=== PATIENT | male | born 1935 | race American Indian/Alaskan Native ===

== ENCOUNTER 2018-03-04 16:14 | Inpatient (IN) | payer MEDICARE ==
--- NOTE | 2018-03-04 16:36 | Emergency Department Report ---
<YOLI STEINER - Last Filed: 03/04/18 19:49> ED General Adult HPI - General Chief complaint: Altered Mental Status Stated complaint: AMS Time Seen by Provider: 03/04/18 16:31 Source: patient, EMS (verbal report received from EMS.ems notes not available at time of chart dictation), RN notes reviewed, old records reviewed Mode of arrival: Stretcher Limitations: Altered Mental Status - History of Present Illness Initial comments: This is an 82-year-old gentleman who is not known to this provider previously. He is unknown to this provider previously. His past medical history includes COPD, congestive heart failure, renal insufficiency, unknown if he is on home oxygen, and he does not know what his ejection fraction is. He is brought to the hospital by EMS for altered mental status. His last known well time is not known. EMS reports the patient was breathing adequately and Eddi-Max breathing in the field. They reported a normal fingerstick. Upon arrival to the ER, the patient was breathing spontaneously, and was arousable to vigorous verbal and physical stimulation. He denied all complaints. He had no recollection of any of the aforementioned events. He cannot describe exacerbating or relieving factors, or radiation of symptoms. He currently denies headache, neck pain, chest pain, abdominal pain, shortness of breath, urinary symptoms. No family or friends are available at this time for collateral information. -: unknown Severity scale (0 -10): 0 Quality: other Consistency: other Improves with: other Worsens with: other Associated Symptoms: confusion, weakness - Related Data Home Medications Medication Instructions Recorded Confirmed Last Taken Clopidogrel [Plavix] 75 mg PO QDAY 03/05/14 10/02/17 Unknown Carvedilol [Coreg] 25 mg PO BID 10/02/17 10/02/17 Unknown Diltiazem HCl [Diltiazem 24Hr ER] 180 mg PO QDAY 10/02/17 10/02/17 Unknown Ezetimibe/Simvastatin [Vytorin 1 each PO QDAY 10/02/17 10/02/17 Unknown 10-20 mg] Ibuprofen [Motrin 800 MG tab] 800 mg PO TID PRN 10/02/17 10/02/17 Unknown LORazepam [Ativan] 2 mg PO TID PRN 10/02/17 10/02/17 Unknown Nitroglycerin [Nitrostat] 0.4 mg SL Q5M PRN 10/02/17 10/02/17 Unknown Acetaminophen with Codeine 30 mg TID PRN 10/03/17 10/03/17 10/01/17 [Acetaminophen-Cod #2 Tablet] Gabapentin [Neurontin] 100 mg PO QHS 10/03/17 10/03/17 10/01/17 Previous Rx's Medication Instructions Recorded Last Taken Type ALBUTEROL Inhaler (OR & NICU) 2 puff IH QID PRN #1 inha 10/05/17 Unknown Rx [ProAir HFA Inhaler] ALBUTEROL NEB's [Proventil 0.083% 2.5 mg IH Q4HRT PRN #60 nebu 10/05/17 Unknown Rx NEBS] Carvedilol [Coreg] 6.25 mg PO BID tablet 10/05/17 Unknown Rx Furosemide [Lasix TAB] 40 mg PO QDAY #30 tablet 10/05/17 Unknown Rx Lisinopril [Zestril TAB] 40 mg PO QDAY #30 tablet 10/05/17 Unknown Rx Mirabegron [Myrbetriq] 25 mg PO QDAY #30 tab.er.24h 10/05/17 Unknown Rx Pantoprazole [Protonix TAB] 40 mg PO QAM #30 tablet 10/05/17 Unknown Rx Potassium Chloride [K-Dur] 10 meq PO QDAY #30 tablet 10/05/17 Unknown Rx Sertraline [Zoloft] 25 mg PO QDAY #30 tablet 10/05/17 Unknown Rx levoFLOXacin [Levaquin TAB] 750 mg PO Q48HR #4 tablet 10/05/17 Unknown Rx methOCARBAMOL [Robaxin TAB] 500 mg PO BID #60 tablet 10/05/17 Unknown Rx predniSONE [Deltasone] 10 mg PO QDAY #30 tab 10/05/17 Unknown Rx raNITIdine HCl [Zantac 300 MG TAB] 300 mg PO QPM #30 tablet 10/05/17 Unknown Rx Allergies Allergy/AdvReac Type Severity Reaction Status Date / Time No Known Allergies Allergy Verified 03/04/18 16:23 ED Review of Systems ROS: Stated complaint: AMS Other details as noted in HPI Comment: Unobtainable due to pts medical conditions ED Past Medical Hx - Past Medical History Hx Hypertension: Yes Hx Heart Attack/AMI: Yes Hx COPD: Yes Additional medical history: syncope, high cholesterol - Surgical History Hx Pacemaker: Yes Hx Internal Defibrillator: Yes Additional Surgical History: aicd - Social History Smoking Status: Former Smoker - Medications Home Medications: Home Medications Medication Instructions Recorded Confirmed Last Taken Type Clopidogrel [Plavix] 75 mg PO QDAY 03/05/14 10/02/17 Unknown History Carvedilol [Coreg] 25 mg PO BID 10/02/17 10/02/17 Unknown History Diltiazem HCl [Diltiazem 24Hr ER] 180 mg PO QDAY 10/02/17 10/02/17 Unknown History Ezetimibe/Simvastatin [Vytorin 1 each PO QDAY 10/02/17 10/02/17 Unknown History 10-20 mg] Ibuprofen [Motrin 800 MG tab] 800 mg PO TID PRN 10/02/17 10/02/17 Unknown History LORazepam [Ativan] 2 mg PO TID PRN 10/02/17 10/02/17 Unknown History Nitroglycerin [Nitrostat] 0.4 mg SL Q5M PRN 10/02/17 10/02/17 Unknown History Acetaminophen with Codeine 30 mg TID PRN 10/03/17 10/03/17 10/01/17 History [Acetaminophen-Cod #2 Tablet] Gabapentin [Neurontin] 100 mg PO QHS 10/03/17 10/03/17 10/01/17 History ALBUTEROL Inhaler (OR & NICU) 2 puff IH QID PRN #1 inha 10/05/17 Unknown Rx [ProAir HFA Inhaler] ALBUTEROL NEB's [Proventil 0.083% 2.5 mg IH Q4HRT PRN #60 nebu 10/05/17 Unknown Rx NEBS] Carvedilol [Coreg] 6.25 mg PO BID tablet 10/05/17 Unknown Rx Furosemide [Lasix TAB] 40 mg PO QDAY #30 tablet 10/05/17 Unknown Rx Lisinopril [Zestril TAB] 40 mg PO QDAY #30 tablet 10/05/17 Unknown Rx Mirabegron [Myrbetriq] 25 mg PO QDAY #30 tab.er.24h 10/05/17 Unknown Rx Pantoprazole [Protonix TAB] 40 mg PO QAM #30 tablet 10/05/17 Unknown Rx Potassium Chloride [K-Dur] 10 meq PO QDAY #30 tablet 10/05/17 Unknown Rx Sertraline [Zoloft] 25 mg PO QDAY #30 tablet 10/05/17 Unknown Rx levoFLOXacin [Levaquin TAB] 750 mg PO Q48HR #4 tablet 10/05/17 Unknown Rx methOCARBAMOL [Robaxin TAB] 500 mg PO BID #60 tablet 10/05/17 Unknown Rx predniSONE [Deltasone] 10 mg PO QDAY #30 tab 10/05/17 Unknown Rx raNITIdine HCl [Zantac 300 MG TAB] 300 mg PO QPM #30 tablet 10/05/17 Unknown Rx ED Physical Exam - General Limitations: Altered Mental Status, Physical Limitation General appearance: lethargic - Head Head exam: Present: atraumatic, normocephalic - Eye Eye exam: Present: normal appearance - ENT ENT exam: Present: normal orophraynx, mucous membranes dry, normal external ear exam - Neck Neck exam: Present: normal inspection, full ROM. Absent: tenderness, meningismus - Respiratory Respiratory exam: Present: decreased breath sounds. Absent: respiratory distress, wheezes, rales, rhonchi, stridor - Cardiovascular Cardiovascular Exam: Present: tachycardia, normal heart sounds, systolic murmur - GI/Abdominal GI/Abdominal exam: Present: soft, pulsatile mass. Absent: distended, tenderness , guarding, rebound, rigid - Rectal Rectal exam: Absent: normal inspection (there is a stage II sacral ulcer) - exam: Present: normal inspection, other (patient has bilateral penile prosthesis prosthesis) - Extremities Exam Extremities exam: Present: full ROM, pedal edema, other (2+ pulses noted in the bilateral upper, lower extremities. Compartments soft. No long bony tenderness. The pelvis is stable.). Absent: normal inspection (chronic venous stasis and hyperpigmentation noted in the bilateral lower extremities), calf tenderness - Back Exam Back exam: Present: normal inspection, full ROM. Absent: paraspinal tenderness , vertebral tenderness - Neurological Exam Neurological exam: Present: altered (patient alert to name. He follows commands.), other (there is no facial droop. The tongue is midline. Extraocular movements are intact bilaterally. Sensation is intact to light touch in the upper, lower extremities to light touch. 5 out of 5 strength bilateral upper, lower extremity) - Psychiatric Psychiatric exam: Present: flat affect - Skin Skin exam: Present: warm, rash (sacral ulcer noted) ED Course Vital Signs 03/04/18 03/04/18 16:33 20:32 Temperature 98 F Pulse Rate 112 H 109 H Respiratory 18 22 Rate Blood Pressure 121/84 133/94 [Right] O2 Sat by Pulse 95 Oximetry - Reevaluation(s) Reevaluation #1: 03/04/18 18:43 Elevated troponin is appreciated, likely secondary to underlying renal insufficiency. Reevaluation #2: 03/04/18 19:23 Patient continues to remain awake and alert and in no distress. His urinalysis suggests a urinary tract infection. Ceftriaxone is ordered. There is currently a computer error, and I am unable to order a urine culture. I have contacted the microbiology lab and verbally requested a urine culture. Reevaluation #3: 03/04/18 19:49 Care is transferred to the oncoming physician, Dr. Nayely Oliver, to contact the hospitalist for admission. ED Medical Decision Making - Lab Data Result diagrams: 03/04/18 16:41 03/04/18 16:41 Vital Signs 03/04/18 16:33 Temperature 98 F Pulse Rate 112 H Respiratory 18 Rate Blood Pressure 121/84 [Right] O2 Sat by Pulse 95 Oximetry Lab Results 03/04/18 03/04/18 03/04/18 Range/Units 16:41 16:41 16:41 WBC 6.5 (4.5-11.0) K/mm3 RBC 4.67 (3.65-5.03) M/mm3 Hgb 11.5 L (11.8-15.2) gm/dl Hct 36.8 (35.5-45.6) % MCV 79 L (84-94) fl MCH 25 L (28-32) pg MCHC 31 L (32-34) % RDW 22.4 H (13.2-15.2) % Plt Count 166 (140-440) K/mm3 PT (12.2-14.9) Sec. INR (0.87-1.13) POC ABG pH (7.35-7.45) POC ABG pCO2 (35-45) POC ABG pO2 (80-105) POC ABG HCO3 POC ABG Total CO2 POC ABG O2 Sat POC ABG Base Excess FiO2 % Sodium 147 H (137-145) mmol/L Potassium 5.2 H (3.6-5.0) mmol/L Chloride 108.8 H (98-107) mmol/L Carbon Dioxide 15 L (22-30) mmol/L Anion Gap 28 mmol/L BUN 136 H (9-20) mg/dL Creatinine 4.9 H (0.8-1.5) mg/dL Estimated GFR 14 ml/min BUN/Creatinine Ratio 28 % Glucose 91 (75-100) mg/dL Lactic Acid (0.7-2.0) mmol/L Calcium 9.0 (8.4-10.2) mg/dL Magnesium (1.7-2.3) mg/dL Total Bilirubin 2.20 H (0.1-1.2) mg/dL AST 32 (5-40) units/L ALT 39 (7-56) units/L Alkaline Phosphatase 259 H (35-129) units/L Total Creatine Kinase (55-170) units/L Troponin T (0.00-0.029) ng/mL Total Protein 6.2 L (6.3-8.2) g/dL Albumin 3.7 L (3.9-5) g/dL Albumin/Globulin Ratio 1.5 % Triglycerides (2-149) mg/dL Cholesterol (50-199) mg/dL LDL Cholesterol Direct (50-130) mg/dL HDL Cholesterol (40-59) mg/dL Cholesterol/HDL Ratio % TSH 0.433 (0.270-4.200) mlU/mL Plasma/Serum Alcohol (0-0.07) % 03/04/18 03/04/18 03/04/18 Range/Units 16:41 16:41 16:41 WBC (4.5-11.0) K/mm3 RBC (3.65-5.03) M/mm3 Hgb (11.8-15.2) gm/dl Hct (35.5-45.6) % MCV (84-94) fl MCH (28-32) pg MCHC (32-34) % RDW (13.2-15.2) % Plt Count (140-440) K/mm3 PT 17.3 H (12.2-14.9) Sec. INR 1.34 H (0.87-1.13) POC ABG pH (7.35-7.45) POC ABG pCO2 (35-45) POC ABG pO2 (80-105) POC ABG HCO3 POC ABG Total CO2 POC ABG O2 Sat POC ABG Base Excess FiO2 % Sodium (137-145) mmol/L Potassium (3.6-5.0) mmol/L Chloride (98-107) mmol/L Carbon Dioxide (22-30) mmol/L Anion Gap mmol/L BUN (9-20) mg/dL Creatinine (0.8-1.5) mg/dL Estimated GFR ml/min BUN/Creatinine Ratio % Glucose (75-100) mg/dL Lactic Acid 2.10 H* (0.7-2.0) mmol/L Calcium (8.4-10.2) mg/dL Magnesium (1.7-2.3) mg/dL Total Bilirubin (0.1-1.2) mg/dL AST (5-40) units/L ALT (7-56) units/L Alkaline Phosphatase (35-129) units/L Total Creatine Kinase (55-170) units/L Troponin T (0.00-0.029) ng/mL Total Protein (6.3-8.2) g/dL Albumin (3.9-5) g/dL Albumin/Globulin Ratio % Triglycerides (2-149) mg/dL Cholesterol (50-199) mg/dL LDL Cholesterol Direct (50-130) mg/dL HDL Cholesterol (40-59) mg/dL Cholesterol/HDL Ratio % TSH (0.270-4.200) mlU/mL Plasma/Serum Alcohol < 0.01 (0-0.07) % 03/04/18 03/04/18 03/04/18 Range/Units 16:41 16:41 17:03 WBC (4.5-11.0) K/mm3 RBC (3.65-5.03) M/mm3 Hgb (11.8-15.2) gm/dl Hct (35.5-45.6) % MCV (84-94) fl MCH (28-32) pg MCHC (32-34) % RDW (13.2-15.2) % Plt Count (140-440) K/mm3 PT (12.2-14.9) Sec. INR (0.87-1.13) POC ABG pH 7.416 (7.35-7.45) POC ABG pCO2 25.0 L (35-45) POC ABG pO2 87 (80-105) POC ABG HCO3 16.1 POC ABG Total CO2 17 POC ABG O2 Sat 97 POC ABG Base Excess -8 FiO2 21 % Sodium (137-145) mmol/L Potassium (3.6-5.0) mmol/L Chloride (98-107) mmol/L Carbon Dioxide (22-30) mmol/L Anion Gap mmol/L BUN (9-20) mg/dL Creatinine (0.8-1.5) mg/dL Estimated GFR ml/min BUN/Creatinine Ratio % Glucose (75-100) mg/dL Lactic Acid (0.7-2.0) mmol/L Calcium (8.4-10.2) mg/dL Magnesium 3.20 H (1.7-2.3) mg/dL Total Bilirubin (0.1-1.2) mg/dL AST (5-40) units/L ALT (7-56) units/L Alkaline Phosphatase (35-129) units/L Total Creatine Kinase 38 L (55-170) units/L Troponin T 0.065 H (0.00-0.029) ng/mL Total Protein (6.3-8.2) g/dL Albumin (3.9-5) g/dL Albumin/Globulin Ratio % Triglycerides 106 (2-149) mg/dL Cholesterol 117 (50-199) mg/dL LDL Cholesterol Direct 60 (50-130) mg/dL HDL Cholesterol 20 L (40-59) mg/dL Cholesterol/HDL Ratio 5.85 % TSH (0.270-4.200) mlU/mL Plasma/Serum Alcohol (0-0.07) % - EKG Data -: EKG Interpreted by [place] Rate: tachycardia - EKG Data 03/04/18 18:41 Sinus tachycardia, 112 bpm, normal axis, QTC prolonged, poor R-wave progression , T-wave inversions in the lateral leads, abnormal EKG, not having chest pain, not a STEMI, nonspecific changes were compared to prior EKG from September 2017. - Radiology Data Radiology results: report reviewed, image reviewed Noncontrast CT scan of the brain is negative. Noncontrast CT scan of the abdomen and pelvis shows pleural effusions, no other obvious disease that is acute, numerous chronic findings. X-ray of the chest shows cardiomegaly, rotated, atelectasis versus effusion - Medical Decision Making Differential diagnosis, including but not limited to: Intracranial hemorrhage, pneumonia, encephalopathy, urinary tract infection Assessment and plan: 82-year-old male with altered mental status. He has a nonfocal neurologic examination, he is protecting his airway at this time, and awake and responsive to questioning and interaction with myself and nurses. He is not a TPA candidate as his last known well time is not known. He is found to have elevated blood urea nitrogen with a creatinine of 4.9, which is almost double what compared to prior values. Most likely, the patient has acute on chronic renal failure, with probable concomitant uremic encephalopathy. Patient is producing urine, and is not obstructed. Myself and nursing staff attempted to place a coud catheter using typical aseptic technique, and we were not successful. However, the patient is not obstructed and is producing urine. He therefore does not require placement of a catheter at this time. He will be given a trial bolus of IV fluids and he will be maintained supportively. The Hospital physician is paged to arrange admission. Critical care attestation.: If time is entered above; I have spent that time in minutes in the direct care of this critically ill patient, excluding procedure time. ED Disposition Disposition: OP ADMIT IP TO THIS HOSP Is pt being admited?: Yes Does the pt Need Aspirin: Yes Condition: Stable Referrals: PRIMARY CARE, [Primary Care Provider] - 3-5 Days - Assessment Assessment Interval: Baseline - Level of Consciousness 1a. Level of Consciousness: not alert, arousable - LOC Questions 1b. LOC Questions: answers 1 question correctly - LOC Command 1c. LOC Commands: performs tasks correctly - Best Gaze 2. Best Gaze: normal - Visual 3. Visual: no visual loss - Facial Palsy 4. Facial Palsy: normal symmetrical movement - Motor Arm 5b. Motor Arm Right: no drift 5a. Motor Arm Left: no drift - Motor Leg 6a. Motor Leg Left: no drift 6b. Motor Leg Right: no drift - Limb Ataxia 7. Limb Ataxia: absent - Sensory 8. Sensory: normal - Best Language 9. Best Language: no aphasia - Dysarthria 10. Dysarthria: normal - Extinction and Inattention 11. Extinction/Inattention: no abnormality - Scoring Total Score: 2 Stroke Severity: Minor Stroke <GABRIELLE OLIVER III - Last Filed: 03/04/18 21:17> ED Course - Consultations Consultation #1: Hospitalist consulted for admission. Dr. Preciado to admit and assume care of patient. Full report given to Dr. Preciado 03/04/18 21:17 ED Medical Decision Making - Lab Data Result diagrams: 03/04/18 16:41 03/04/18 16:41
[2018-03-04 17:18] LABS: Hematocrit 36.8 % (35.5-45.6); Hemoglobin 11.5 gm/dl (11.8-15.2); Mean Corpuscular HGB Conc 31 % (32-34); Mean Corpuscular Hemoglobin 25 pg (28-32); Mean Corpuscular Volume 79 fl (84-94); Platelet Count 166 K/mm3 (140-440); Red Blood Count 4.67 M/mm3 (3.65-5.03); Red Cell Distribution Width 22.4 % (13.2-15.2)
[2018-03-04 17:22] LABS: INR 1.34 (0.87-1.13)
--- NOTE | 2018-03-04 17:40 | Cat Scan Report ---
FINAL REPORT EXAM: CT HEAD/BRAIN WO CON HISTORY: ams The the TECHNIQUE: CT examination of the head without IV contrast PRIORS: None. FINDINGS: No acute air-fluid level visualized in the included air-filled sinuses. Bone windows demonstrate no acute fracture. There is ventricular and sulcal prominence compatible with global cerebrocortical atrophy. Low attenuation regions in the cerebral white matter, while nonspecific, are present and usually attributed to chronic ischemic gliosis. It can occur secondary to the normal aging process, hypertension, or arterial sclerotic vascular disease. The differential includes demyelination in the appropriate clinical setting. The brain contains no mass, mass effect, hemorrhage, or acute infarct. There is no extra-axial intracranial bleed or brain bleed. There is no midline shift. IMPRESSION: No acute CVA, intracranial bleed, or brain mass
--- NOTE | 2018-03-04 17:58 | Cat Scan Report ---
FINAL REPORT EXAM: CT ABDOMEN PELVIS WO CON HISTORY: abd wall ecchymosis, altered mental status TECHNIQUE: CT examination of the ABDOMEN without IV contrast CT examination of the PELVIS without IV contrast PRIORS: One-view chest 03/04/2018 FINDINGS: Rotatory lumbar curvature with upper right apex. Degenerative change in the regional skeleton. Penile implant in place. Moderate right and small left pleural effusions layer posteriorly. Adjacent minimal compressive atelectasis in both lower lobes. Patient arm in the diagnostic [id number] severely degrades image quality and severely limits the examination. Motion and misregistration artifact also limits the examination. Cardiomegaly without pericardial effusion. Normal noncontrast appearance of the visualized portion of the liver, gallbladder, adrenals, pancreas, and spleen. Normal caliber abdominal aorta with moderate to severe calcified atherosclerotic plaque extending into the iliac arteries. Normal caliber IVC. Nonspecific, smoothly marginated, simple appearing, low density bilateral renal lesions are statistically most likely cysts. They are too numerous to count and peripelvic as well as cortical in location. No renal calculus or hydronephrosis. No ureteral calculus or distention. Very small fat containing umbilical hernia. No inguinal hernia. No CT evidence of abdominal wall hematoma. No retroperitoneal adenopathy. No mesenteric mass. Normal-appearing stomach and duodenum. No small bowel distention in the abdomen and pelvis. No pelvic free fluid. Normal-appearing decompressed urinary bladder. Normal-appearing prostate and seminal vesicles. No definite rectal abnormality. Moderate descending and severe sigmoid colon diverticulosis without CT evidence of diverticulitis. No gross ascites, free air, or colonic distention. Normal-appearing cecum and terminal ileum. Likely retrocecal appendix appears normal. 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 No CT evidence of abdominal wall hematoma or abnormal fluid collection Moderate descending and severe sigmoid colon diverticulosis without CT evidence of diverticulitis
--- NOTE | 2018-03-04 18:01 | XRay Report ---
FINAL REPORT EXAM: XR CHEST 1V AP HISTORY: RESP DISRESS TECHNIQUE: One view examination of the chest PRIORS: Portable chest 10/02/[address] 03/04/2018 FINDINGS: An electronic cardiac device remains in place and again obscures a portion of the left chest, limiting the examination. Cable entry is via the left subclavian vein. Cardiac silhouette size enlarged without definite vascular congestion. No radiographic evidence of pneumothorax or focal pulmonary consolidation. Bilateral pleural effusions noted on comparison CT not visible radiographically. No acute displaced fracture. IMPRESSION: Cardiomegaly without definite vascular congestion Moderate right and small left pleural effusions noted on comparison CT not visible radiographically
[2018-03-04 18:13] LABS: Albumin 3.7 g/dL (3.9-5)
[2018-03-04 18:15] LABS: Chol/HDL Ratio 5.85 %
[2018-03-04] MEDS ORDERED: NACL 0.9% 500 ML 500 ML IV ONE (18:24)
[2018-03-04] MEDS ORDERED: BABY ASPIRIN PO ONE (18:44)
[2018-03-04 19:00] LABS: Bacteria,Urine 1+ /HPF (Negative); Bilirubin,Urine NEG (Negative); Blood,Urine LG (Negative); Color,Urine Amber (Yellow); Mucus,Urine FEW /HPF
[2018-03-04 19:02] LABS: Amphetamine Screen,Urine PRESUMPTIVE NEGATIVE; Benzodiazepines Screen,Urine PRESUMPTIVE NEGATIVE; Cannabinoid Screen,Urine PRESUMPTIVE NEGATIVE; Cocaine Screen,Urine PRESUMPTIVE NEGATIVE; Methadone Screen,Urine PRESUMPTIVE NEGATIVE; Opiate Screen,Urine PRESUMPTIVE NEGATIVE
[2018-03-04 19:04] LABS: RBC,Urine > 182.0 /HPF (0.0-6.0); WBC,Urine > 182.0 /HPF (0.0-6.0)
[2018-03-04] MEDS ORDERED: ROCEPHIN/NS 1 GM/50 ML 1 GM/50 ML BAG IV ONE (19:20)
[2018-03-04 19:25] LABS: Basophils % (Manual) 0 % (0.0-1.8); Eosinophils % (Manual) 0 % (0.0-4.3); Large Platelets 1+; Total Cells Counted 100
[2018-03-04 19:26] LABS: Anisocytosis 1+; Hypochromasia 1+; Ovalocytes 1+; Platelet Estimate Consistent w Auto; Target Cells Few
[2018-03-04] MEDS ORDERED: KIONEX PR NR (22:44)
--- NOTE | 2018-03-04 22:47 | History and Physical Report ---
History of Present Illness Date of examination: 03/04/18 History of present illness: 82 year old man with history of hypertension, coronary artery disease, hyperlipidemia, CHF was brought to the emergency room is at decreased oral intake over the last 1 week. Son at bedside state that his in November and since then he is admitted difficulty with grieving process. Review of system is unobtainable. Patient was in the hospital 1 week ago for CHF exacerbation PAST MEDICAL HISTORY:hypertension, coronary artery disease, hyperlipidemia, CHF PAST SURGICAL HISTORY: Pacemaker, AICD SOCIAL HISTORY: No alcohol, no drugs, tobacco FAMILY HISTORY: Hypertension Medications and Allergies Allergies Allergy/AdvReac Type Severity Reaction Status Date / Time No Known Allergies Allergy Verified 03/04/18 16:23 Home Medications Medication Instructions Recorded Confirmed Last Taken Type Clopidogrel [Plavix] 75 mg PO DAILY 03/05/14 03/04/18 Unknown History LORazepam [Ativan] 2 mg PO DAILY PRN 10/02/17 03/04/18 Unknown History Nitroglycerin [Nitrostat] 0.4 mg SL Q5M PRN 10/02/17 03/04/18 Unknown History Gabapentin [Neurontin] 100 mg PO QHS 10/03/17 03/04/18 10/01/17 History Aspirin EC [Aspirin Enteric Coated 81 mg PO DAILY 03/04/18 03/04/18 Unknown History TAB] Carvedilol [Coreg] 6.25 mg PO BID 03/04/18 03/04/18 Unknown History Furosemide [Lasix] 80 mg PO BID 03/04/18 03/04/18 Unknown History Galantamine HBr [Galantamine ER] 8 mg PO DAILY 03/04/18 03/04/18 Unknown History Hydralazine HCl 25 mg PO TID 03/04/18 03/04/18 Unknown History ISOSORBIDE MONOnitrate [Imdur ER] 30 mg PO DAILY 03/04/18 03/04/18 Unknown History Ipratropium/Albuterol Sulfate 1 ampul INHALATION Q12H PRN 03/04/18 03/04/18 Unknown History [DUONEB *Not for PRN Use*] Mirabegron [Myrbetriq] 25 mg PO DAILY 03/04/18 03/04/18 Unknown History Potassium Chloride [K-Dur] 30 meq PO DAILY 03/04/18 03/04/18 Unknown History Sertraline [Zoloft] 25 mg PO DAILY 03/04/18 03/04/18 Unknown History guaiFENesin [Guaifenesin] 400 mg PO Q4H PRN 03/04/18 03/04/18 Unknown History Active Meds: Active Medications Sodium Polystyrene Sulfonate (Kionex) 15 gm WI ONCE ONE Stop: 03/04/18 22:45 Exam - Physical Exam Narrative exam: Gen. appearance: Patient lying in bed, no apparent distress HEENT: Normocephalic, atraumatic, pupils equally round and reactive to light, extraocular movement intact, and no sclericterus,. No JVD or thyromegaly or nodule,neck supple, no carotid bruit ,mucous membranes dry, no exudate or erythema Heart: S1, S2, regular rate and rhythm Lungs: Clear bilaterally, breathing comfortable Abdomen: Positive bowel sounds, non-tender, nondistended, no organomegaly Extremity:no edema cyanosis, clubbing Skin: no rash, dry, warm Neuro: Difficult to assess - Constitutional Vitals: Temp Pulse Resp BP Pulse Ox 98 F 111 H 24 143/104 95 03/04/18 16:33 03/04/18 21:45 03/04/18 21:45 03/04/18 21:45 03/04/18 16:33 Results - Labs CBC & Chem 7: 03/07/18 04:34 03/09/18 07:46 Labs: Abnormal lab results 03/04/18 03/04/18 03/04/18 Range/Units 16:41 16:41 16:41 Hgb 11.5 L (11.8-15.2) gm/dl MCV 79 L (84-94) fl MCH 25 L (28-32) pg MCHC 31 L (32-34) % RDW 22.4 H (13.2-15.2) % Seg Neuts % (Manual) 78.0 H (40.0-70.0) % Lymphocytes % (Manual) 10.0 L (13.4-35.0) % Monocytes % (Manual) 11.0 H (0.0-7.3) % Lymphocytes # (Manual) 0.7 L (1.2-5.4) K/mm3 PT 17.3 H (12.2-14.9) Sec. INR 1.34 H (0.87-1.13) POC ABG pCO2 (35-45) Sodium 147 H (137-145) mmol/L Potassium 5.2 H (3.6-5.0) mmol/L Chloride 108.8 H (98-107) mmol/L Carbon Dioxide 15 L (22-30) mmol/L BUN 136 H (9-20) mg/dL Creatinine 4.9 H (0.8-1.5) mg/dL Lactic Acid (0.7-2.0) mmol/L Magnesium (1.7-2.3) mg/dL Total Bilirubin 2.20 H (0.1-1.2) mg/dL Alkaline Phosphatase 259 H (35-129) units/L Total Creatine Kinase (55-170) units/L Troponin T (0.00-0.029) ng/mL Total Protein 6.2 L (6.3-8.2) g/dL Albumin 3.7 L (3.9-5) g/dL HDL Cholesterol (40-59) mg/dL Urine WBC (Auto) (0.0-6.0) /HPF 03/04/18 03/04/18 03/04/18 Range/Units 16:41 16:41 16:41 Hgb (11.8-15.2) gm/dl MCV (84-94) fl MCH (28-32) pg MCHC (32-34) % RDW (13.2-15.2) % Seg Neuts % (Manual) (40.0-70.0) % Lymphocytes % (Manual) (13.4-35.0) % Monocytes % (Manual) (0.0-7.3) % Lymphocytes # (Manual) (1.2-5.4) K/mm3 PT (12.2-14.9) Sec. INR (0.87-1.13) POC ABG pCO2 (35-45) Sodium (137-145) mmol/L Potassium (3.6-5.0) mmol/L Chloride (98-107) mmol/L Carbon Dioxide (22-30) mmol/L BUN (9-20) mg/dL Creatinine (0.8-1.5) mg/dL Lactic Acid 2.10 H* (0.7-2.0) mmol/L Magnesium 3.20 H (1.7-2.3) mg/dL Total Bilirubin (0.1-1.2) mg/dL Alkaline Phosphatase (35-129) units/L Total Creatine Kinase 38 L (55-170) units/L Troponin T 0.065 H (0.00-0.029) ng/mL Total Protein (6.3-8.2) g/dL Albumin (3.9-5) g/dL HDL Cholesterol 20 L (40-59) mg/dL Urine WBC (Auto) (0.0-6.0) /HPF 03/04/18 03/04/18 Range/Units 17:03 18:38 Hgb (11.8-15.2) gm/dl MCV (84-94) fl MCH (28-32) pg MCHC (32-34) % RDW (13.2-15.2) % Seg Neuts % (Manual) (40.0-70.0) % Lymphocytes % (Manual) (13.4-35.0) % Monocytes % (Manual) (0.0-7.3) % Lymphocytes # (Manual) (1.2-5.4) K/mm3 PT (12.2-14.9) Sec. INR (0.87-1.13) POC ABG pCO2 25.0 L (35-45) Sodium (137-145) mmol/L Potassium (3.6-5.0) mmol/L Chloride (98-107) mmol/L Carbon Dioxide (22-30) mmol/L BUN (9-20) mg/dL Creatinine (0.8-1.5) mg/dL Lactic Acid (0.7-2.0) mmol/L Magnesium (1.7-2.3) mg/dL Total Bilirubin (0.1-1.2) mg/dL Alkaline Phosphatase (35-129) units/L Total Creatine Kinase (55-170) units/L Troponin T (0.00-0.029) ng/mL Total Protein (6.3-8.2) g/dL Albumin (3.9-5) g/dL HDL Cholesterol (40-59) mg/dL Urine WBC (Auto) > 182.0 H (0.0-6.0) /HPF - Imaging and Cardiology CT scan - abdomen: report reviewed CT scan - pelvis: report reviewed Assessment and Plan Assessment Acute renal failure Urinary tract infection Hyperkalemia Hypernatremia Abnormal cardiac enzymes CHF, stable Coronary artery disease Hyperlipidemia Plan Admit to medicine Start gentle IV fluids, consult renal Give Kayexalate now, start IV Rocephin, follow cultures Check cardiac enzymes, echo Case discussed with renal DVT prophylaxis Addendum Change IV fluid, sodium and renal failure not improving
[2018-03-05] MEDS ORDERED: SODIUM CHLORIDE FLUSH SYRINGE 10 ML IV PRN ×2 (00:02→03:31)
[2018-03-05] MEDS ORDERED: TYLENOL PO PRN ×2 (00:02→03:31)
[2018-03-05] MEDS ORDERED: ZOFRAN IV PRN ×2 (00:02→03:31)
[2018-03-05] MEDS: NACL 0.45% 1000 ML 1,000 ML IV SCH ×2 (01:50→07:02)
[2018-03-05 05:50] LABS: Hematocrit 37.3 % (35.5-45.6); Hemoglobin 11.6 gm/dl (11.8-15.2); Mean Corpuscular HGB Conc 31 % (32-34); Mean Corpuscular Volume 79 fl (84-94); Platelet Count 167 K/mm3 (140-440); Red Blood Count 4.71 M/mm3 (3.65-5.03)
[2018-03-05 06:01] LABS: Mean Corpuscular Hemoglobin 25 pg (28-32); Red Cell Distribution Width 22.3 % (13.2-15.2)
[2018-03-05 06:19] LABS: Calcium 8.9 mg/dL (8.4-10.2)
[2018-03-05] MEDS ORDERED: D5/0.45NS 1,000 ML IV SCH (07:00)
[2018-03-05 07:11] LABS: Basophils % (Manual) 0 % (0.0-1.8); Eosinophils % (Manual) 0 % (0.0-4.3); Total Cells Counted 100
[2018-03-05 07:12] LABS: Anisocytosis 1+; Hypochromasia 1+; Ovalocytes 1+
[2018-03-05 07:42] LABS: Creatine Kinase MB 3.1 ng/mL (0.0-4.0)
--- NOTE | 2018-03-05 08:02 | Consultation ---
History of Present Illness - Reason for Consult Consult date: 03/05/18 acute renal failure, chronic renal failure, hyperkalemia - History of Present Illness The patient is an 82 YO male with history significant for HTN, HLD, Dementia, CAD s/p PCI, Systolic CHF (EF 20 - 25%) s/p AICD, BPH, h/o bladder cancer, COPD , GERD, Polycystic kidney disease, CKD stage 3 and Anxiety who presented to ED for evaluation of decreased PO intake. Patient is not able to provide any history at this time. His in November and since then he has difficulty with grieving process. His creatinine is 5.3, K 5.3 and Sodium 156. Past History Past Medical History: anemia, cancer (bladder), COPD, GERD, heart failure, hypertension, renal failure Medications and Allergies Allergies Allergy/AdvReac Type Severity Reaction Status Date / Time No Known Allergies Allergy Verified 03/04/18 16:23 Home Medications Medication Instructions Recorded Confirmed Last Taken Type Clopidogrel [Plavix] 75 mg PO DAILY 03/05/14 03/04/18 Unknown History LORazepam [Ativan] 2 mg PO DAILY PRN 10/02/17 03/04/18 Unknown History Nitroglycerin [Nitrostat] 0.4 mg SL Q5M PRN 10/02/17 03/04/18 Unknown History Gabapentin [Neurontin] 100 mg PO QHS 10/03/17 03/04/18 10/01/17 History Aspirin EC [Aspirin Enteric Coated 81 mg PO DAILY 03/04/18 03/04/18 Unknown History TAB] Carvedilol [Coreg] 6.25 mg PO BID 03/04/18 03/04/18 Unknown History Furosemide [Lasix] 80 mg PO BID 03/04/18 03/04/18 Unknown History Galantamine HBr [Galantamine ER] 8 mg PO DAILY 03/04/18 03/04/18 Unknown History Hydralazine HCl 25 mg PO TID 03/04/18 03/04/18 Unknown History ISOSORBIDE MONOnitrate [Imdur ER] 30 mg PO DAILY 03/04/18 03/04/18 Unknown History Ipratropium/Albuterol Sulfate 1 ampul INHALATION Q12H PRN 03/04/18 03/04/18 Unknown History [DUONEB *Not for PRN Use*] Mirabegron [Myrbetriq] 25 mg PO DAILY 03/04/18 03/04/18 Unknown History Potassium Chloride [K-Dur] 30 meq PO DAILY 03/04/18 03/04/18 Unknown History Sertraline [Zoloft] 25 mg PO DAILY 03/04/18 03/04/18 Unknown History guaiFENesin [Guaifenesin] 400 mg PO Q4H PRN 03/04/18 03/04/18 Unknown History Active Meds: Active Medications Acetaminophen (Tylenol) 650 mg PO Q4H PRN PRN Reason: Pain MILD(1-3)/Fever >100.5/NAVARRETE Enoxaparin Sodium (Lovenox) 30 mg SUB-Q QDAY PATRICK Ceftriaxone Sodium (Rocephin/Ns 1 Gm/50 Ml) 1 gm in 50 mls @ 100 mls/hr IV Q24HR PATRICK; Protocol Dextrose/Sodium Chloride (D5/0.45ns) 1,000 mls @ 50 mls/hr IV DIRECT PATRICK Last Admin: 03/05/18 07:05 Dose: 50 mls/hr Ondansetron HCl (Zofran) 4 mg IV Q8H PRN PRN Reason: Nausea And Vomiting Sodium Chloride (Sodium Chloride Flush Syringe 10 Ml) 10 ml IV PRN PRN PRN Reason: LINE FLUSH Sodium Chloride (Sodium Chloride Flush Syringe 10 Ml) 10 ml IV BID PATRICK Review of Systems ROS unobtainable: due to mental status Exam - Vital Signs Vital signs: Vital Signs Temp Pulse Resp BP Pulse Ox 98 F 112 H 18 121/84 95 03/04/18 16:33 03/04/18 16:33 03/04/18 16:33 03/04/18 16:33 03/04/18 16:33 - General Appearance General appearance: well-developed, appears stated age, other (not in distress, dependent edema noted) EENT: ATNC, mucous membranes dry Neck: Present: neck supple, trachea midline Respiratory: Clear to Ascultation Heart: regular, S1S2, no murmurs Gastrointestinal: Present: normoactive bowel sounds. Absent: tenderness Integumentary: no rash, warm and dry Neurologic: other (barely arousable) Results - Lab Results 03/07/18 04:34 03/07/18 04:34 Most recent lab results Calcium 8.9 mg/dL (8.4-10.2) 03/05/18 04:49 Magnesium 3.20 mg/dL (1.7-2.3) H 03/04/18 16:41 - Image Kidney/bladder ultrasound: other Assessment and Plan 1. Acute Kidney injury: MELISSA superimposed on CKD stage 3 in the setting of CHF. Suspect Cardio-renal syndrome. Monitor renal function. Renal prognosis is guarded. 2. Hyperkalemia: D40 ordered. Patient is on D5 1/2NS. Patient is not able to take anything by PO at this time. Monitor K level. 3. Hypernatremia: IV D5W. 4. CHF with volume overload: Lasix. 5. UTI.
[2018-03-05] MEDS ORDERED: D50W (25GM) Vial IV ONE (08:03)
[2018-03-05] MEDS ORDERED: D50W (25GM) Syringe IV NR (08:30)
[2018-03-05] MEDS: LOVENOX SUB-Q SCH (09:53)
[2018-03-05] MEDS: D5W 1,000 ML IV SCH (09:53)
[2018-03-05] MEDS: ROCEPHIN/NS 1 GM/50 ML 1 GM/50 ML BAG IV SCH (09:54)
[2018-03-05] MEDS: SODIUM CHLORIDE FLUSH SYRINGE 10 ML IV SCH ×2 (09:55→22:00)
[2018-03-05] MEDS ORDERED: SODIUM CHLORIDE FLUSH SYRINGE 10 ML IV SCH (10:00)
[2018-03-05] MEDS ORDERED: AMIDATE IV ONE (10:46)
--- NOTE | 2018-03-05 11:55 | Progress Note ---
Assessment and Plan Assessment and plan: Acute kidney injury on CKD. Nephrology consulted. Continue IV fluid hydration. CT of the abdomen and pelvis reveals no evidence of hydronephrosis or obstruction. GNR Urinary tract infection. Continue IV antibiotics and monitor closely. Follow-up urine and blood cultures. Hyperkalemia. Etiology secondary to #1. Continue hypokalemic protocol. Hypernatremia. Etiology likely secondary to volume depletion and dehydration. Continue IV fluids. Elevated cardiac enzymes. Etiology likely secondary to renal insufficiency. No reports of chest pain. Hyperlipidemia. Chronic Systolic CHF (EF 20 - 25%) s/p AICD h/o bladder cancer COPD. Compensated GERD. Start PPI History Interval history: 82-year-old gentleman with history of hypertension, coronary artery disease, hyperlipidemia, CHF was brought to the emergency room is at decreased oral intake over the last 1 week prior to admission. No new issues overnight. Hospitalist Physical - Constitutional Vitals: Temp Pulse Resp BP Pulse Ox 98.1 F 112 H 16 143/98 100 03/05/18 08:00 03/04/18 23:39 03/05/18 07:00 03/04/18 23:39 03/05/18 07:00 General appearance: Present: no acute distress, well-nourished - EENT Eyes: Present: PERRL, EOM intact ENT: hearing intact, clear oral mucosa, dentition normal - Neck Neck: Present: supple, normal ROM - Respiratory Respiratory effort: normal Respiratory: bilateral: CTA - Cardiovascular Rhythm: regular Heart Sounds: Present: S1 & S2. Absent: gallop, rub - Extremities Extremities: no ischemia, No edema, Full ROM - Abdominal General gastrointestinal: soft, non-tender, non-distended, normal bowel sounds - Integumentary Integumentary: Present: clear, warm, dry - Neurologic Neurologic: CNII-XII intact, moves all extremities Results - Labs CBC & Chem 7: 03/05/18 04:49 03/05/18 04:49 Labs: Laboratory Last Values WBC 7.6 K/mm3 (4.5-11.0) 03/05/18 04:49 RBC 4.71 M/mm3 (3.65-5.03) 03/05/18 04:49 Hgb 11.6 gm/dl (11.8-15.2) L 03/05/18 04:49 Hct 37.3 % (35.5-45.6) 03/05/18 04:49 MCV 79 fl (84-94) L 03/05/18 04:49 MCH 25 pg (28-32) L 03/05/18 04:49 MCHC 31 % (32-34) L 03/05/18 04:49 RDW 22.3 % (13.2-15.2) H 03/05/18 04:49 Plt Count 167 K/mm3 (140-440) 03/05/18 04:49 [place] % (Auto) Sifter And Miller 03/05/18 04:49 Add Manual Diff Complete 03/05/18 04:49 Total Counted 100 03/05/18 04:49 Seg Neuts % (Manual) 88.0 % (40.0-70.0) H 03/05/18 04:49 Band Neutrophils % 0 % 03/05/18 04:49 Lymphocytes % (Manual) 5.0 % (13.4-35.0) L 03/05/18 04:49 Reactive Lymphs % (Man) 0 % 03/05/18 04:49 Monocytes % (Manual) 7.0 % (0.0-7.3) 03/05/18 04:49 Eosinophils % (Manual) 0 % (0.0-4.3) 03/05/18 04:49 Basophils % (Manual) 0 % (0.0-1.8) 03/05/18 04:49 Metamyelocytes % 0 % 03/05/18 04:49 Myelocytes % 0 % 03/05/18 04:49 Promyelocytes % 0 % 03/05/18 04:49 Blast Cells % 0 % 03/05/18 04:49 Nucleated RBC % 2.0 % (0.0-0.9) H 03/05/18 04:49 Seg Neutrophils # Man 6.7 K/mm3 (1.8-7.7) 03/05/18 04:49 Band Neutrophils # 0.0 K/mm3 03/05/18 04:49 Lymphocytes # (Manual) 0.4 K/mm3 (1.2-5.4) L 03/05/18 04:49 Abs React Lymphs (Man) 0.0 K/mm3 03/05/18 04:49 Monocytes # (Manual) 0.5 K/mm3 (0.0-0.8) 03/05/18 04:49 Eosinophils # (Manual) 0.0 K/mm3 (0.0-0.4) 03/05/18 04:49 Basophils # (Manual) 0.0 K/mm3 (0.0-0.1) 03/05/18 04:49 Metamyelocytes # 0.0 K/mm3 03/05/18 04:49 Myelocytes # 0.0 K/mm3 03/05/18 04:49 Promyelocytes # 0.0 K/mm3 03/05/18 04:49 Blast Cells # 0.0 K/mm3 03/05/18 04:49 WBC Morphology Not Reportable 03/05/18 04:49 Hypersegmented Neuts Not Reportable 03/05/18 04:49 Hyposegmented Neuts Not Reportable 03/05/18 04:49 Hypogranular Neuts Not Reportable 03/05/18 04:49 Smudge Cells Not Reportable 03/05/18 04:49 Toxic Granulation Not Reportable 03/05/18 04:49 Toxic Vacuolation Not Reportable 03/05/18 04:49 Dohle Bodies Not Reportable 03/05/18 04:49 Pelger-Huet Anomaly Not Reportable 03/05/18 04:49 Joshua Rods Not Reportable 03/05/18 04:49 Platelet Estimate Appears normal 03/05/18 04:49 Clumped Platelets Not Reportable 03/05/18 04:49 Plt Clumps, EDTA Not Reportable 03/05/18 04:49 Large Platelets Not Reportable 03/05/18 04:49 Giant Platelets Not Reportable 03/05/18 04:49 Platelet Satelliting Not Reportable 03/05/18 04:49 Plt Morphology Comment Not Reportable 03/05/18 04:49 RBC Morphology Not Reportable 03/05/18 04:49 Dimorphic RBCs Not Reportable 03/05/18 04:49 Polychromasia 1+ 03/05/18 04:49 Hypochromasia 1+ 03/05/18 04:49 Poikilocytosis Not Reportable 03/05/18 04:49 Anisocytosis 1+ 03/05/18 04:49 Microcytosis Not Reportable 03/05/18 04:49 Macrocytosis Not Reportable 03/05/18 04:49 Spherocytes Not Reportable 03/05/18 04:49 Pappenheimer Bodies Not Reportable 03/05/18 04:49 Sickle Cells Not Reportable 03/05/18 04:49 Target Cells Not Reportable 03/05/18 04:49 Tear Drop Cells Not Reportable 03/05/18 04:49 Ovalocytes 1+ 03/05/18 04:49 Helmet Cells Not Reportable 03/05/18 04:49 [place] Bodies Not Reportable 03/05/18 04:49 [place] Rings Not Reportable 03/05/18 04:49 Flora Cells Not Reportable 03/05/18 04:49 Bite Cells Not Reportable 03/05/18 04:49 Crenated Cell Not Reportable 03/05/18 04:49 Elliptocytes Few 03/05/18 04:49 Acanthocytes (Spur) Not Reportable 03/05/18 04:49 Rouleaux Not Reportable 03/05/18 04:49 Hemoglobin C Crystals Not Reportable 03/05/18 04:49 Schistocytes Not Reportable 03/05/18 04:49 Malaria parasites Not Reportable 03/05/18 04:49 Ketan Bodies Not Reportable 03/05/18 04:49 Hem Pathologist Commnt No 03/05/18 04:49 PT 17.3 Sec. (12.2-14.9) H 03/04/18 16:41 INR 1.34 (0.87-1.13) H 03/04/18 16:41 POC ABG pH 7.416 (7.35-7.45) 03/04/18 17:03 POC ABG pCO2 25.0 (35-45) L 03/04/18 17:03 POC ABG pO2 87 (80-105) 03/04/18 17:03 POC ABG HCO3 16.1 03/04/18 17:03 POC ABG Total CO2 17 03/04/18 17:03 POC ABG O2 Sat 97 03/04/18 17:03 POC ABG Base Excess -8 03/04/18 17:03 FiO2 21 % 03/04/18 17:03 Sodium 156 mmol/L (137-145) H D 03/05/18 04:49 Potassium 5.3 mmol/L (3.6-5.0) H 03/05/18 04:49 Chloride 114.0 mmol/L (98-107) H 03/05/18 04:49 Carbon Dioxide 16 mmol/L (22-30) L 03/05/18 04:49 Anion Gap 31 mmol/L 03/05/18 04:49 BUN 143 mg/dL (9-20) H 03/05/18 04:49 Creatinine 5.3 mg/dL (0.8-1.5) H 03/05/18 04:49 Estimated GFR 13 ml/min 03/05/18 04:49 BUN/Creatinine Ratio 27 % 03/05/18 04:49 Glucose 82 mg/dL (75-100) 03/05/18 04:49 POC Glucose 69 (70-105) L 03/05/18 08:03 Lactic Acid 2.10 mmol/L (0.7-2.0) H* 03/04/18 16:41 Calcium 8.9 mg/dL (8.4-10.2) 03/05/18 04:49 Magnesium 3.20 mg/dL (1.7-2.3) H 03/04/18 16:41 Total Bilirubin 2.20 mg/dL (0.1-1.2) H 03/04/18 16:41 AST 32 units/L (5-40) 03/04/18 16:41 ALT 39 units/L (7-56) 03/04/18 16:41 Alkaline Phosphatase 259 units/L (35-129) H 03/04/18 16:41 Total Creatine Kinase 30 units/L (55-170) L 03/05/18 07:06 CK-MB (CK-2) 3.1 ng/mL (0.0-4.0) 03/05/18 07:06 CK-MB (CK-2) Rel Index 10.3 (0-4) H 03/05/18 07:06 Troponin T 0.064 ng/mL (0.00-0.029) H 03/05/18 07:06 Total Protein 6.2 g/dL (6.3-8.2) L 03/04/18 16:41 Albumin 3.7 g/dL (3.9-5) L 03/04/18 16:41 Albumin/Globulin Ratio 1.5 % 03/04/18 16:41 Triglycerides 106 mg/dL (2-149) 03/04/18 16:41 Cholesterol 117 mg/dL (50-199) 03/04/18 16:41 LDL Cholesterol Direct 60 mg/dL (50-130) 03/04/18 16:41 HDL Cholesterol 20 mg/dL (40-59) L 03/04/18 16:41 Cholesterol/HDL Ratio 5.85 % 03/04/18 16:41 TSH 0.433 mlU/mL (0.270-4.200) 03/04/18 16:41 Urine Color Latonya (Yellow) 03/04/18 18:38 Urine Turbidity Cloudy (Clear) 03/04/18 18:38 Urine pH 5.0 (5.0-7.0) 03/04/18 18:38 Ur Specific [place] 1.012 (1.003-1.030) 03/04/18 18:38 Urine Protein 100 mg/dl mg/dL (Negative) 03/04/18 18:38 Urine Glucose (UA) Neg mg/dL (Negative) 03/04/18 18:38 Urine Ketones Neg mg/dL (Negative) 03/04/18 18:38 Urine Blood Lg (Negative) 03/04/18 18:38 Urine Nitrite Neg (Negative) 03/04/18 18:38 Urine Bilirubin Neg (Negative) 03/04/18 18:38 Urine Urobilinogen 2.0 mg/dL (<2.0) 03/04/18 18:38 Ur Leukocyte Esterase Lg (Negative) 03/04/18 18:38 Urine WBC (Auto) > 182.0 /HPF (0.0-6.0) H 03/04/18 18:38 Urine RBC (Auto) > 182.0 /HPF (0.0-6.0) 03/04/18 18:38 Urine Bacteria (Auto) 1+ /HPF (Negative) 03/04/18 18:38 Urine WBC Clumps 3+ /HPF 03/04/18 18:38 Urine Mucus Few /HPF 03/04/18 18:38 Urine Opiates Screen Presumptive negative 03/04/18 18:38 Urine Methadone Screen Presumptive negative 03/04/18 18:38 Ur Barbiturates Screen Presumptive negative 03/04/18 18:38 Ur Phencyclidine Scrn Presumptive negative 03/04/18 18:38 Ur Amphetamines Screen Presumptive negative 03/04/18 18:38 U Benzodiazepines Scrn Presumptive negative 03/04/18 18:38 Urine Cocaine Screen Presumptive negative 03/04/18 18:38 U Marijuana (THC) Screen Presumptive negative 03/04/18 18:38 Drugs of Abuse Note Disclamer 03/04/18 18:38 Plasma/Serum Alcohol < 0.01 % (0-0.07) 03/04/18 16:41
[2018-03-05 15:29] LABS: Calcium 8.8 mg/dL (8.4-10.2)
[2018-03-05 15:31] LABS: Creatine Kinase MB 3.3 ng/mL (0.0-4.0)
[2018-03-06] MEDS: D5W 1,000 ML IV SCH ×2 (00:10→14:47)
[2018-03-06 05:27] LABS: Calcium 8.6 mg/dL (8.4-10.2)
[2018-03-06] MEDS: LOVENOX SUB-Q SCH (09:37)
[2018-03-06] MEDS: ROCEPHIN/NS 1 GM/50 ML 1 GM/50 ML BAG IV SCH (10:50)
[2018-03-06] MEDS: SODIUM CHLORIDE FLUSH SYRINGE 10 ML IV SCH ×2 (10:50→21:46)
--- NOTE | 2018-03-06 13:34 | Progress Note ---
Assessment and Plan Assessment and plan: Acute kidney injury on CKD III. Nephrology following. Continue IV fluid hydration. CT of the abdomen and pelvis reveals no evidence of hydronephrosis or obstruction. Klebsiella UTI. Continue IV antibiotics and monitor closely. Follow-up blood cultures. Hyperkalemia. Etiology secondary to #1. Continue hypokalemic protocol. Hypernatremia. Etiology likely secondary to volume depletion and dehydration. Continue IV fluids. Elevated cardiac enzymes. Etiology likely secondary to renal insufficiency. No reports of chest pain. Hyperlipidemia. Chronic Systolic CHF (EF 20 - 25%) s/p AICD h/o bladder cancer COPD. Compensated GERD. Cont. PPI History Interval history: 82-year-old gentleman with history of hypertension, coronary artery disease, hyperlipidemia, CHF was brought to the emergency room is at decreased oral intake over the last 1 week prior to admission. No new issues overnight. Hospitalist Physical - Constitutional Vitals: Temp Pulse Resp BP Pulse Ox 97.8 F 111 H 20 125/94 98 03/06/18 12:00 03/06/18 05:01 03/06/18 05:01 03/06/18 05:01 03/06/18 05:01 General appearance: Present: no acute distress, well-nourished - EENT Eyes: Present: PERRL, EOM intact ENT: hearing intact, clear oral mucosa, dentition normal - Neck Neck: Present: supple, normal ROM - Respiratory Respiratory effort: normal Respiratory: bilateral: CTA - Cardiovascular Rhythm: regular Heart Sounds: Present: S1 & S2. Absent: gallop, rub - Extremities Extremities: no ischemia, No edema, Full ROM - Abdominal General gastrointestinal: soft, non-tender, non-distended, normal bowel sounds - Integumentary Integumentary: Present: clear, warm, dry - Neurologic Neurologic: CNII-XII intact, moves all extremities Results - Labs CBC & Chem 7: 03/05/18 04:49 03/06/18 04:38 Labs: Laboratory Last Values WBC 7.6 K/mm3 (4.5-11.0) 03/05/18 04:49 RBC 4.71 M/mm3 (3.65-5.03) 03/05/18 04:49 Hgb 11.6 gm/dl (11.8-15.2) L 03/05/18 04:49 Hct 37.3 % (35.5-45.6) 03/05/18 04:49 MCV 79 fl (84-94) L 03/05/18 04:49 MCH 25 pg (28-32) L 03/05/18 04:49 MCHC 31 % (32-34) L 03/05/18 04:49 RDW 22.3 % (13.2-15.2) H 03/05/18 04:49 Plt Count 167 K/mm3 (140-440) 03/05/18 04:49 [place] % (Auto) Merchandising Professor 03/05/18 04:49 Add Manual Diff Complete 03/05/18 04:49 Total Counted 100 03/05/18 04:49 Seg Neuts % (Manual) 88.0 % (40.0-70.0) H 03/05/18 04:49 Band Neutrophils % 0 % 03/05/18 04:49 Lymphocytes % (Manual) 5.0 % (13.4-35.0) L 03/05/18 04:49 Reactive Lymphs % (Man) 0 % 03/05/18 04:49 Monocytes % (Manual) 7.0 % (0.0-7.3) 03/05/18 04:49 Eosinophils % (Manual) 0 % (0.0-4.3) 03/05/18 04:49 Basophils % (Manual) 0 % (0.0-1.8) 03/05/18 04:49 Metamyelocytes % 0 % 03/05/18 04:49 Myelocytes % 0 % 03/05/18 04:49 Promyelocytes % 0 % 03/05/18 04:49 Blast Cells % 0 % 03/05/18 04:49 Nucleated RBC % 2.0 % (0.0-0.9) H 03/05/18 04:49 Seg Neutrophils # Man 6.7 K/mm3 (1.8-7.7) 03/05/18 04:49 Band Neutrophils # 0.0 K/mm3 03/05/18 04:49 Lymphocytes # (Manual) 0.4 K/mm3 (1.2-5.4) L 03/05/18 04:49 Abs React Lymphs (Man) 0.0 K/mm3 03/05/18 04:49 Monocytes # (Manual) 0.5 K/mm3 (0.0-0.8) 03/05/18 04:49 Eosinophils # (Manual) 0.0 K/mm3 (0.0-0.4) 03/05/18 04:49 Basophils # (Manual) 0.0 K/mm3 (0.0-0.1) 03/05/18 04:49 Metamyelocytes # 0.0 K/mm3 03/05/18 04:49 Myelocytes # 0.0 K/mm3 03/05/18 04:49 Promyelocytes # 0.0 K/mm3 03/05/18 04:49 Blast Cells # 0.0 K/mm3 03/05/18 04:49 WBC Morphology Not Reportable 03/05/18 04:49 Hypersegmented Neuts Not Reportable 03/05/18 04:49 Hyposegmented Neuts Not Reportable 03/05/18 04:49 Hypogranular Neuts Not Reportable 03/05/18 04:49 Smudge Cells Not Reportable 03/05/18 04:49 Toxic Granulation Not Reportable 03/05/18 04:49 Toxic Vacuolation Not Reportable 03/05/18 04:49 Dohle Bodies Not Reportable 03/05/18 04:49 Pelger-Huet Anomaly Not Reportable 03/05/18 04:49 Joshua Rods Not Reportable 03/05/18 04:49 Platelet Estimate Appears normal 03/05/18 04:49 Clumped Platelets Not Reportable 03/05/18 04:49 Plt Clumps, EDTA Not Reportable 03/05/18 04:49 Large Platelets Not Reportable 03/05/18 04:49 Giant Platelets Not Reportable 03/05/18 04:49 Platelet Satelliting Not Reportable 03/05/18 04:49 Plt Morphology Comment Not Reportable 03/05/18 04:49 RBC Morphology Not Reportable 03/05/18 04:49 Dimorphic RBCs Not Reportable 03/05/18 04:49 Polychromasia 1+ 03/05/18 04:49 Hypochromasia 1+ 03/05/18 04:49 Poikilocytosis Not Reportable 03/05/18 04:49 Anisocytosis 1+ 03/05/18 04:49 Microcytosis Not Reportable 03/05/18 04:49 Macrocytosis Not Reportable 03/05/18 04:49 Spherocytes Not Reportable 03/05/18 04:49 Pappenheimer Bodies Not Reportable 03/05/18 04:49 Sickle Cells Not Reportable 03/05/18 04:49 Target Cells Not Reportable 03/05/18 04:49 Tear Drop Cells Not Reportable 03/05/18 04:49 Ovalocytes 1+ 03/05/18 04:49 Helmet Cells Not Reportable 03/05/18 04:49 [place] Bodies Not Reportable 03/05/18 04:49 [place] Rings Not Reportable 03/05/18 04:49 [place] Cells Not Reportable 03/05/18 04:49 Bite Cells Not Reportable 03/05/18 04:49 Crenated Cell Not Reportable 03/05/18 04:49 Elliptocytes Few 03/05/18 04:49 Acanthocytes (Spur) Not Reportable 03/05/18 04:49 Rouleaux Not Reportable 03/05/18 04:49 Hemoglobin C Crystals Not Reportable 03/05/18 04:49 Schistocytes Not Reportable 03/05/18 04:49 Malaria parasites Not Reportable 03/05/18 04:49 Ketan Bodies Not Reportable 03/05/18 04:49 Hem Pathologist Commnt No 03/05/18 04:49 PT 17.3 Sec. (12.2-14.9) H 03/04/18 16:41 INR 1.34 (0.87-1.13) H 03/04/18 16:41 POC ABG pH 7.416 (7.35-7.45) 03/04/18 17:03 POC ABG pCO2 25.0 (35-45) L 03/04/18 17:03 POC ABG pO2 87 (80-105) 03/04/18 17:03 POC ABG HCO3 16.1 03/04/18 17:03 POC ABG Total CO2 17 03/04/18 17:03 POC ABG O2 Sat 97 03/04/18 17:03 POC ABG Base Excess -8 03/04/18 17:03 FiO2 21 % 03/04/18 17:03 Sodium 148 mmol/L (137-145) H 03/06/18 04:38 Potassium 4.2 mmol/L (3.6-5.0) 03/06/18 04:38 Chloride 110.6 mmol/L (98-107) H 03/06/18 04:38 Carbon Dioxide 15 mmol/L (22-30) L 03/06/18 04:38 Anion Gap 27 mmol/L 03/06/18 04:38 BUN 139 mg/dL (9-20) H 03/06/18 04:38 Creatinine 4.9 mg/dL (0.8-1.5) H 03/06/18 04:38 Estimated GFR 14 ml/min 03/06/18 04:38 BUN/Creatinine Ratio 28 % 03/06/18 04:38 Glucose 118 mg/dL (75-100) H 03/06/18 04:38 POC Glucose 136 (70-105) H 03/06/18 12:12 Lactic Acid 2.10 mmol/L (0.7-2.0) H* 03/04/18 16:41 Calcium 8.6 mg/dL (8.4-10.2) 03/06/18 04:38 Phosphorus 7.60 mg/dL (2.5-4.5) H 03/06/18 04:38 Magnesium 3.20 mg/dL (1.7-2.3) H 03/04/18 16:41 Total Bilirubin 2.20 mg/dL (0.1-1.2) H 03/04/18 16:41 AST 32 units/L (5-40) 03/04/18 16:41 ALT 39 units/L (7-56) 03/04/18 16:41 Alkaline Phosphatase 259 units/L (35-129) H 03/04/18 16:41 Total Creatine Kinase 70 units/L (55-170) 03/05/18 14:38 CK-MB (CK-2) 3.3 ng/mL (0.0-4.0) 03/05/18 14:38 CK-MB (CK-2) Rel Index 4.7 (0-4) H 03/05/18 14:38 Troponin T 0.065 ng/mL (0.00-0.029) H 03/05/18 14:38 Total Protein 6.2 g/dL (6.3-8.2) L 03/04/18 16:41 Albumin 3.7 g/dL (3.9-5) L 03/04/18 16:41 Albumin/Globulin Ratio 1.5 % 03/04/18 16:41 Triglycerides 106 mg/dL (2-149) 03/04/18 16:41 Cholesterol 117 mg/dL (50-199) 03/04/18 16:41 LDL Cholesterol Direct 60 mg/dL (50-130) 03/04/18 16:41 HDL Cholesterol 20 mg/dL (40-59) L 03/04/18 16:41 Cholesterol/HDL Ratio 5.85 % 03/04/18 16:41 TSH 0.433 mlU/mL (0.270-4.200) 03/04/18 16:41 Urine Color Latonya (Yellow) 03/04/18 18:38 Urine Turbidity Cloudy (Clear) 03/04/18 18:38 Urine pH 5.0 (5.0-7.0) 03/04/18 18:38 Ur Specific Estill 1.012 (1.003-1.030) 03/04/18 18:38 Urine Protein 100 mg/dl mg/dL (Negative) 03/04/18 18:38 Urine Glucose (UA) Neg mg/dL (Negative) 03/04/18 18:38 Urine Ketones Neg mg/dL (Negative) 03/04/18 18:38 Urine Blood Lg (Negative) 03/04/18 18:38 Urine Nitrite Neg (Negative) 03/04/18 18:38 Urine Bilirubin Neg (Negative) 03/04/18 18:38 Urine Urobilinogen 2.0 mg/dL (<2.0) 03/04/18 18:38 Ur Leukocyte Esterase Lg (Negative) 03/04/18 18:38 Urine WBC (Auto) > 182.0 /HPF (0.0-6.0) H 03/04/18 18:38 Urine RBC (Auto) > 182.0 /HPF (0.0-6.0) 03/04/18 18:38 Urine Bacteria (Auto) 1+ /HPF (Negative) 03/04/18 18:38 Urine WBC Clumps 3+ /HPF 03/04/18 18:38 Urine Mucus Few /HPF 03/04/18 18:38 Urine Opiates Screen Presumptive negative 03/04/18 18:38 Urine Methadone Screen Presumptive negative 03/04/18 18:38 Ur Barbiturates Screen Presumptive negative 03/04/18 18:38 Ur Phencyclidine Scrn Presumptive negative 03/04/18 18:38 Ur Amphetamines Screen Presumptive negative 03/04/18 18:38 U Benzodiazepines Scrn Presumptive negative 03/04/18 18:38 Urine Cocaine Screen Presumptive negative 03/04/18 18:38 U Marijuana (THC) Screen Presumptive negative 03/04/18 18:38 Drugs of Abuse Note Disclamer 03/04/18 18:38 Plasma/Serum Alcohol < 0.01 % (0-0.07) 03/04/18 16:41
--- NOTE | 2018-03-07 00:22 | Progress Note ---
Assessment and Plan 1. Acute Kidney injury: MELISSA superimposed on CKD stage 3 in the setting of CHF. Suspect Cardio-renal syndrome. Monitor renal function. Renal prognosis is guarded. 2. Hyperkalemia: Improved. 3. Hypernatremia: IV D5W. 4. CHF with volume overload: Lasix prn. 5. UTI. D/w his son in length and answered all questions. Subjective Date of service: 03/06/18 Interval history: Patient was seen and examined at the bedside. Objective - Vital Signs Vital signs: Vital Signs - 12hr 03/06/18 03/06/18 03/06/18 12:31 12:41 12:51 Temperature Pulse Rate 113 H 98 H 90 Pulse Rate [ From Monitor] Respiratory 23 23 17 Rate Blood Pressure 137/81 137/81 137/81 Blood Pressure [Right] O2 Sat by Pulse 100 100 100 Oximetry 03/06/18 03/06/18 03/06/18 13:00 13:11 13:20 Temperature Pulse Rate 75 87 93 H Pulse Rate [ From Monitor] Respiratory 20 18 16 Rate Blood Pressure 137/92 137/92 137/81 Blood Pressure [Right] O2 Sat by Pulse 100 100 100 Oximetry 03/06/18 03/06/18 03/06/18 13:31 13:41 13:50 Temperature Pulse Rate 95 H 87 74 Pulse Rate [ From Monitor] Respiratory 17 17 16 Rate Blood Pressure 137/92 137/92 137/92 Blood Pressure [Right] O2 Sat by Pulse 100 100 100 Oximetry 03/06/18 03/06/18 03/06/18 14:00 14:11 14:21 Temperature Pulse Rate 74 74 74 Pulse Rate [ From Monitor] Respiratory 15 14 14 Rate Blood Pressure 130/89 130/89 130/89 Blood Pressure [Right] O2 Sat by Pulse 100 100 100 Oximetry 03/06/18 03/06/18 03/06/18 14:31 14:41 14:51 Temperature Pulse Rate 74 74 74 Pulse Rate [ From Monitor] Respiratory 14 14 22 Rate Blood Pressure 130/89 130/89 130/89 Blood Pressure [Right] O2 Sat by Pulse 100 100 100 Oximetry 03/06/18 03/06/18 03/06/18 15:00 15:11 15:20 Temperature Pulse Rate 114 H 97 H 74 Pulse Rate [ From Monitor] Respiratory 23 23 17 Rate Blood Pressure 135/87 135/87 135/87 Blood Pressure [Right] O2 Sat by Pulse Oximetry 03/06/18 03/06/18 03/06/18 15:30 15:40 15:51 Temperature Pulse Rate 74 92 H 96 H Pulse Rate [ From Monitor] Respiratory 22 25 H 26 H Rate Blood Pressure 135/87 135/87 135/87 Blood Pressure [Right] O2 Sat by Pulse 100 100 100 Oximetry 03/06/18 03/06/18 03/06/18 16:00 16:11 16:21 Temperature 98.0 F Pulse Rate 81 109 H 105 H Pulse Rate [ From Monitor] Respiratory 19 24 25 H Rate Blood Pressure 138/87 138/87 138/87 Blood Pressure [Right] O2 Sat by Pulse 100 100 100 Oximetry 03/06/18 03/06/18 03/06/18 16:31 16:41 16:51 Temperature Pulse Rate 112 H 112 H 112 H Pulse Rate [ From Monitor] Respiratory 26 H 19 26 H Rate Blood Pressure 138/87 138/87 138/87 Blood Pressure [Right] O2 Sat by Pulse 100 100 100 Oximetry 03/06/18 03/06/18 03/06/18 17:00 17:11 17:21 Temperature Pulse Rate 112 H 112 H 75 Pulse Rate [ From Monitor] Respiratory 23 19 14 Rate Blood Pressure 133/97 133/97 133/97 Blood Pressure [Right] O2 Sat by Pulse 100 100 100 Oximetry 03/06/18 03/06/18 03/06/18 17:31 17:41 17:51 Temperature Pulse Rate 105 H 90 Pulse Rate [ From Monitor] Respiratory 18 15 Rate Blood Pressure 133/97 133/97 133/97 Blood Pressure [Right] O2 Sat by Pulse 100 100 100 Oximetry 03/06/18 03/06/18 03/06/18 18:00 18:11 18:21 Temperature Pulse Rate 74 74 74 Pulse Rate [ From Monitor] Respiratory 14 13 13 Rate Blood Pressure 124/84 124/84 124/84 Blood Pressure [Right] O2 Sat by Pulse 100 100 100 Oximetry 03/06/18 03/06/18 03/06/18 20:00 21:00 22:00 Temperature 98.1 F Pulse Rate 100 H Pulse Rate [ 100 H From Monitor] Respiratory 17 18 Rate Blood Pressure Blood Pressure 131/95 [Right] O2 Sat by Pulse 99 98 Oximetry - General Appearance General appearance: well-developed, appears stated age, other (not in distress) EENT: ATNC Neck: supple Respiratory: Present: Rales Cardiology: S1S2 Gastrointestinal: normoactive bowel sounds, no tenderness Integumentary: no rash, warm and dry Neurologic: other (non-verbal, more alert) Musculoskeletal: other (LE edema noted) - Lab 03/07/18 04:34 03/07/18 04:34 Most recent lab results Calcium 8.6 mg/dL (8.4-10.2) 03/06/18 04:38 Phosphorus 7.60 mg/dL (2.5-4.5) H 03/06/18 04:38 Magnesium 3.20 mg/dL (1.7-2.3) H 03/04/18 16:41
[2018-03-07] MEDS: D5W 1,000 ML IV SCH ×2 (03:39→15:39)
[2018-03-07 04:55] LABS: Hematocrit 36.8 % (35.5-45.6); Hemoglobin 11.5 gm/dl (11.8-15.2); Mean Corpuscular HGB Conc 31 % (32-34); Mean Corpuscular Volume 79 fl (84-94); Platelet Count 147 K/mm3 (140-440); Red Blood Count 4.66 M/mm3 (3.65-5.03)
[2018-03-07 04:57] LABS: Mean Corpuscular Hemoglobin 25 pg (28-32); Red Cell Distribution Width 21.9 % (13.2-15.2)
[2018-03-07 05:16] LABS: Calcium 8.6 mg/dL (8.4-10.2)
[2018-03-07 05:58] LABS: Basophils % (Manual) 0 % (0.0-1.8); Myelocytes # (Manual) 0.2 K/mm3; Total Cells Counted 100
[2018-03-07 05:59] LABS: Anisocytosis 1+
[2018-03-07 06:00] LABS: Platelet Estimate Consistent w Auto
--- NOTE | 2018-03-07 07:38 | Progress Note ---
Assessment and Plan 1. Acute Kidney injury: MELISSA superimposed on CKD stage 3 in the setting of CHF. Suspect Cardio-renal syndrome. Monitor renal function. BUN and creatinine remain elevated. Renal prognosis is guarded. 2. Hyperkalemia: Improved. 3. Hypernatremia: IV D5W. 4. CHF with volume overload: Lasix prn. 5. UTI. Subjective Date of service: 03/07/18 Interval history: Patient was seen and examined at the bedside. Objective - Vital Signs Vital signs: Vital Signs - 12hr 03/06/18 03/06/18 03/06/18 20:00 21:00 22:00 Temperature 98.1 F Pulse Rate 100 H Pulse Rate [ 100 H From Monitor] Respiratory 17 18 Rate Blood Pressure 131/95 [Right] O2 Sat by Pulse 99 98 Oximetry 03/07/18 03/07/18 00:00 04:00 Temperature 98.7 F 98.0 F Pulse Rate 93 H 75 Pulse Rate [ From Monitor] Respiratory 20 17 Rate Blood Pressure 123/88 139/98 [Right] O2 Sat by Pulse 99 99 Oximetry - General Appearance General appearance: well-developed, well-nourished, appears stated age, other ( not in distress) EENT: ATNC, PERRL, hearing intact Neck: supple Respiratory: Present: Decreased Breath Sounds Cardiology: irregularly irregular, S1S2 Gastrointestinal: normoactive bowel sounds, no tenderness Integumentary: no rash, warm and dry Neurologic: no focal deficit, no asterixis, confused Musculoskeletal: other (trace pedal edema noted) Psychiatric: cooperative - Lab 03/07/18 04:34 03/07/18 04:34 Most recent lab results Calcium 8.6 mg/dL (8.4-10.2) 03/07/18 04:34 Phosphorus 7.60 mg/dL (2.5-4.5) H 03/06/18 04:38 Magnesium 3.20 mg/dL (1.7-2.3) H 03/04/18 16:41
[2018-03-07] MEDS: ROCEPHIN/NS 1 GM/50 ML 1 GM/50 ML BAG IV SCH (10:00)
[2018-03-07] MEDS: LOVENOX SUB-Q SCH (10:02)
[2018-03-07] MEDS: SODIUM CHLORIDE FLUSH SYRINGE 10 ML IV SCH ×2 (10:02→21:45)
[2018-03-07] MEDS ORDERED: LASIX IV SCH (13:00)
--- NOTE | 2018-03-07 16:56 | Progress Note ---
Assessment and Plan - Patient Problems (1) Acute kidney injury Current Visit: Yes Status: Acute Plan to address problem: Agent with acute kidney injury most likely secondary to prerenal azotemia. Continues to improve slowly. Initial BUN/creatinine 149 over 5.1 and now 132 over 4.5. Patient's week with disability. Will require fpc facility placement. Awaiting placement. Acute on chronic kidney disease. (2) UTI (urinary tract infection) Current Visit: Yes Status: Acute Qualifiers: Urinary tract infection type: site unspecified Hematuria presence: without hematuria Qualified Code(s): N39.0 - Urinary tract infection, site not specified Plan to address problem: Resolved with Levaquin IV antibiotics stable no fever no white count. (3) Uremic encephalopathy Current Visit: Yes Status: Resolved (4) CHF (congestive heart failure) Current Visit: No Status: Acute Plan to address problem: Currently not actively in failure. Patient also was hypovolemic. We'll observe. Ejection fraction 20-25%. (5) COPD (chronic obstructive pulmonary disease) Current Visit: No Status: Chronic Qualifiers: COPD type: unspecified COPD Qualified Code(s): J44.9 - Chronic obstructive pulmonary disease, unspecified Subjective Date of service: 03/07/18 Principal diagnosis: acute kidney injury. Interval history: pt 82-year-old male with a history of hypertension coronary artery disease, hyperlipidemia and congestive heart failure. Presents with acute on chronic kidney injury. Decreased by mouth intake. Objective - Constitutional Vitals: Vital Signs - 12hr 03/07/18 03/07/18 03/07/18 07:41 07:51 07:55 Temperature 97.8 F Pulse Rate 76 79 Pulse Rate [ From Monitor] Respiratory 12 16 Rate Blood Pressure 142/88 142/88 O2 Sat by Pulse 100 100 Oximetry 03/07/18 03/07/18 03/07/18 08:00 08:11 08:21 Temperature Pulse Rate 76 88 85 Pulse Rate [ From Monitor] Respiratory 16 14 17 Rate Blood Pressure 124/80 124/80 124/80 O2 Sat by Pulse 100 100 100 Oximetry 03/07/18 03/07/18 03/07/18 08:31 08:41 08:51 Temperature Pulse Rate 78 91 H 76 Pulse Rate [ From Monitor] Respiratory 15 19 17 Rate Blood Pressure 124/80 124/80 124/80 O2 Sat by Pulse 100 100 100 Oximetry 03/07/18 03/07/18 03/07/18 09:00 09:11 09:21 Temperature Pulse Rate 114 H 77 75 Pulse Rate [ From Monitor] Respiratory 18 15 16 Rate Blood Pressure 116/93 116/93 116/93 O2 Sat by Pulse 100 100 100 Oximetry 03/07/18 03/07/18 03/07/18 09:31 09:41 09:51 Temperature Pulse Rate 76 75 75 Pulse Rate [ From Monitor] Respiratory 15 14 15 Rate Blood Pressure 116/93 116/93 116/93 O2 Sat by Pulse 100 100 100 Oximetry 03/07/18 03/07/18 03/07/18 10:00 10:11 10:21 Temperature Pulse Rate 76 81 76 Pulse Rate [ 76 From Monitor] Respiratory 13 18 19 Rate Blood Pressure 121/101 121/101 121/101 O2 Sat by Pulse 100 98 100 Oximetry 03/07/18 03/07/18 03/07/18 10:31 10:41 10:51 Temperature Pulse Rate 75 76 76 Pulse Rate [ From Monitor] Respiratory 12 19 17 Rate Blood Pressure 121/101 121/101 121/101 O2 Sat by Pulse 100 99 100 Oximetry 03/07/18 03/07/18 03/07/18 11:00 11:11 11:21 Temperature Pulse Rate 75 76 75 Pulse Rate [ From Monitor] Respiratory 15 14 13 Rate Blood Pressure 120/83 120/83 120/83 O2 Sat by Pulse 99 98 99 Oximetry 03/07/18 03/07/18 03/07/18 11:31 11:41 11:51 Temperature Pulse Rate 76 77 75 Pulse Rate [ From Monitor] Respiratory 25 H 15 21 Rate Blood Pressure 120/83 120/83 120/83 O2 Sat by Pulse 97 100 100 Oximetry 03/07/18 03/07/18 03/07/18 12:00 12:10 12:20 Temperature Pulse Rate 76 76 90 Pulse Rate [ From Monitor] Respiratory 17 14 19 Rate Blood Pressure 120/83 133/92 133/92 O2 Sat by Pulse 100 100 100 Oximetry 03/07/18 03/07/18 03/07/18 12:30 12:40 12:50 Temperature Pulse Rate 88 113 H 76 Pulse Rate [ From Monitor] Respiratory 20 29 H 18 Rate Blood Pressure 133/92 133/92 133/92 O2 Sat by Pulse 100 100 100 Oximetry 09/03/1603/07/18 03/07/18 13:00 13:10 13:20 Temperature Pulse Rate 76 76 76 Pulse Rate [ From Monitor] Respiratory 17 17 17 Rate Blood Pressure 133/92 120/83 135/88 O2 Sat by Pulse 100 100 100 Oximetry 03/07/18 03/07/18 03/07/18 13:30 13:40 13:50 Temperature Pulse Rate 81 75 76 Pulse Rate [ From Monitor] Respiratory 19 20 19 Rate Blood Pressure 135/88 135/88 135/88 O2 Sat by Pulse 100 100 100 Oximetry 03/07/18 03/07/18 03/07/18 14:00 14:10 14:20 Temperature Pulse Rate 76 76 94 H Pulse Rate [ From Monitor] Respiratory 19 19 19 Rate Blood Pressure 131/89 131/89 131/89 O2 Sat by Pulse 100 100 100 Oximetry 03/07/18 03/07/18 03/07/18 14:30 14:40 14:50 Temperature Pulse Rate 86 76 76 Pulse Rate [ From Monitor] Respiratory 21 13 15 Rate Blood Pressure 131/89 131/89 131/89 O2 Sat by Pulse 100 100 100 Oximetry 03/07/18 03/07/18 03/07/18 15:00 15:10 15:20 Temperature Pulse Rate 76 85 77 Pulse Rate [ From Monitor] Respiratory 13 15 13 Rate Blood Pressure 133/90 133/90 133/90 O2 Sat by Pulse 100 100 100 Oximetry 03/07/18 03/07/18 03/07/18 15:30 15:40 15:50 Temperature Pulse Rate 76 75 75 Pulse Rate [ From Monitor] Respiratory 10 L 13 17 Rate Blood Pressure 133/90 133/90 133/90 O2 Sat by Pulse 99 100 100 Oximetry 03/07/18 16:00 Temperature Pulse Rate 75 Pulse Rate [ From Monitor] Respiratory 16 Rate Blood Pressure 117/81 O2 Sat by Pulse 100 Oximetry General appearance: Present: no acute distress, cachectic - EENT Eyes: PERRL, EOM intact ENT: hearing intact, clear oral mucosa Ears: bilateral: normal - Neck Neck: supple, normal ROM - Respiratory Respiratory effort: normal Respiratory: bilateral: CTA - Breasts Breasts: normal - Cardiovascular Rhythm: regular Heart Sounds: Present: S1 & S2. Absent: gallop, rub Extremities: pulses intact, No edema, normal color, Full ROM - Gastrointestinal General gastrointestinal: Present: soft, non-tender, non-distended, normal bowel sounds - Genitourinary Male genitourinary: normal - Integumentary Integumentary: clear, warm, dry - Musculoskeletal Musculoskeletal: 1, strength equal bilaterally - Neurologic Neurologic: moves all extremities - Psychiatric Psychiatric: memory intact, appropriate mood/affect, intact judgment & insight - Labs CBC & Chem 7: 03/07/18 04:34 03/07/18 04:34 Labs: Abnormal lab results 03/06/18 03/06/18 03/07/18 Range/Units 17:30 23:51 04:34 Hgb 11.5 L (11.8-15.2) gm/dl MCV 79 L (84-94) fl MCH 25 L (28-32) pg MCHC 31 L (32-34) % RDW 21.9 H (13.2-15.2) % Seg Neuts % (Manual) 80.0 H (40.0-70.0) % Lymphocytes % (Manual) 8.0 L (13.4-35.0) % Monocytes % (Manual) 8.0 H (0.0-7.3) % Nucleated RBC % 3.0 H (0.0-0.9) % Lymphocytes # (Manual) 0.6 L (1.2-5.4) K/mm3 Sodium (137-145) mmol/L Chloride (98-107) mmol/L Carbon Dioxide (22-30) mmol/L BUN (9-20) mg/dL Creatinine (0.8-1.5) mg/dL Glucose (75-100) mg/dL POC Glucose 134 H 127 H (70-105) 03/07/18 03/07/18 03/07/18 Range/Units 04:34 05:55 12:00 Hgb (11.8-15.2) gm/dl MCV (84-94) fl MCH (28-32) pg MCHC (32-34) % RDW (13.2-15.2) % Seg Neuts % (Manual) (40.0-70.0) % Lymphocytes % (Manual) (13.4-35.0) % Monocytes % (Manual) (0.0-7.3) % Nucleated RBC % (0.0-0.9) % Lymphocytes # (Manual) (1.2-5.4) K/mm3 Sodium 148 H (137-145) mmol/L Chloride 107.9 H (98-107) mmol/L Carbon Dioxide 20 L (22-30) mmol/L BUN 132 H (9-20) mg/dL Creatinine 4.5 H (0.8-1.5) mg/dL Glucose 119 H (75-100) mg/dL POC Glucose 118 H 133 H (70-105)
[2018-03-08] MEDS: D5W 1,000 ML IV SCH ×2 (06:01→19:31)
--- NOTE | 2018-03-08 09:05 | Progress Note ---
Assessment and Plan 1. Acute Kidney injury: MELISSA superimposed on CKD stage 3 in the setting of CHF. Suspect Cardio-renal syndrome. Renal function is improving. Renal prognosis is guarded. 2. Hypokalemia: Replete K. 3. Hypernatremia: IV D5W. 4. CHF with volume overload: Lasix prn. 5. UTI. Subjective Date of service: 03/08/18 Principal diagnosis: acute kidney injury. Interval history: Patient was seen and examined at the bedside. Objective - Vital Signs Vital signs: Vital Signs - 12hr 03/07/18 03/07/18 03/07/18 21:10 21:20 21:30 Temperature Pulse Rate 75 76 75 Respiratory 14 18 18 Rate Blood Pressure 129/84 129/84 129/84 O2 Sat by Pulse 100 100 100 Oximetry 03/07/18 03/07/18 03/07/18 21:40 21:50 22:00 Temperature Pulse Rate 75 75 77 Respiratory 17 13 22 Rate Blood Pressure 129/84 129/84 121/85 O2 Sat by Pulse 100 100 100 Oximetry 03/07/18 03/07/18 03/07/18 22:04 22:10 22:20 Temperature Pulse Rate 81 74 75 Respiratory 19 20 15 Rate Blood Pressure 121/85 121/85 121/85 O2 Sat by Pulse 100 100 100 Oximetry 03/07/18 03/07/18 03/07/18 22:30 22:40 22:50 Temperature Pulse Rate 75 75 75 Respiratory 13 16 15 Rate Blood Pressure 121/85 121/85 121/85 O2 Sat by Pulse 100 100 100 Oximetry 03/07/18 03/07/18 03/07/18 23:00 23:10 23:20 Temperature Pulse Rate 75 78 79 Respiratory 14 19 22 Rate Blood Pressure 132/84 121/85 121/85 O2 Sat by Pulse 100 100 100 Oximetry 03/07/18 03/07/18 03/07/18 23:30 23:40 23:50 Temperature Pulse Rate 83 75 81 Respiratory 21 18 17 Rate Blood Pressure 121/85 121/85 121/85 O2 Sat by Pulse 100 100 100 Oximetry 03/08/18 03/08/18 03/08/18 00:00 00:10 00:20 Temperature 97.9 F Pulse Rate 78 75 78 Respiratory 19 17 14 Rate Blood Pressure 127/94 132/84 132/84 O2 Sat by Pulse 100 100 100 Oximetry 03/08/18 03/08/18 03/08/18 00:30 00:40 00:50 Temperature Pulse Rate 75 75 Respiratory 10 L 16 Rate Blood Pressure 132/84 132/84 132/84 O2 Sat by Pulse 100 100 100 Oximetry 03/08/18 03/08/18 03/08/18 01:00 01:10 01:20 Temperature Pulse Rate 75 113 H 76 Respiratory 15 14 18 Rate Blood Pressure 132/83 127/94 127/94 O2 Sat by Pulse 100 100 100 Oximetry 03/08/18 03/08/18 03/08/18 01:30 01:40 01:50 Temperature Pulse Rate 83 75 114 H Respiratory 21 14 16 Rate Blood Pressure 127/94 132/83 132/83 O2 Sat by Pulse 100 100 100 Oximetry 03/08/18 03/08/18 03/08/18 02:00 02:10 02:20 Temperature Pulse Rate 75 76 78 Respiratory 14 15 13 Rate Blood Pressure 140/91 140/91 140/91 O2 Sat by Pulse 100 100 Oximetry 03/08/18 03/08/18 03/08/18 02:30 02:40 02:50 Temperature Pulse Rate 80 75 75 Respiratory 17 17 13 Rate Blood Pressure 140/91 140/91 140/91 O2 Sat by Pulse 100 100 100 Oximetry 03/08/18 03/08/18 03/08/18 03:00 03:10 03:20 Temperature Pulse Rate 76 77 81 Respiratory 14 16 13 Rate Blood Pressure 140/91 130/90 130/90 O2 Sat by Pulse 100 100 100 Oximetry 03/08/18 03/08/18 03/08/18 03:30 03:40 03:50 Temperature Pulse Rate 75 75 80 Respiratory 12 12 13 Rate Blood Pressure 130/90 130/90 130/90 O2 Sat by Pulse 100 100 100 Oximetry 03/08/18 03/08/18 03/08/18 04:00 04:10 04:20 Temperature 97.8 F Pulse Rate 87 76 77 Respiratory 13 14 13 Rate Blood Pressure 146/90 146/90 146/90 O2 Sat by Pulse 100 100 100 Oximetry 03/08/18 03/08/18 03/08/18 04:30 04:40 04:50 Temperature Pulse Rate 76 75 76 Respiratory 11 L 19 16 Rate Blood Pressure 146/90 146/90 146/90 O2 Sat by Pulse 100 100 100 Oximetry 03/08/18 03/08/18 03/08/18 05:00 05:10 05:20 Temperature Pulse Rate 76 76 76 Respiratory 14 13 19 Rate Blood Pressure 146/90 146/90 132/89 O2 Sat by Pulse 100 100 100 Oximetry 03/08/18 03/08/18 03/08/18 05:30 05:40 05:50 Temperature Pulse Rate 84 76 76 Respiratory 16 12 12 Rate Blood Pressure 132/89 132/89 132/89 O2 Sat by Pulse 100 100 100 Oximetry 03/08/18 03/08/18 03/08/18 06:00 06:10 06:20 Temperature Pulse Rate 75 76 76 Respiratory 10 L 15 15 Rate Blood Pressure 135/95 135/95 135/95 O2 Sat by Pulse 100 100 100 Oximetry 03/08/18 08:00 Temperature 97.4 F L Pulse Rate Respiratory Rate Blood Pressure O2 Sat by Pulse Oximetry - General Appearance General appearance: well-developed, appears stated age, other (not in distress) EENT: ATNC Neck: supple Respiratory: Present: Clear to Ascultation Cardiology: S1S2, no murmurs Gastrointestinal: normoactive bowel sounds, no tenderness, no distended Integumentary: no rash, warm and dry Neurologic: no focal deficit, no asterixis, confused Musculoskeletal: other (trace dependent edema noted) Psychiatric: cooperative - Lab 03/07/18 04:34 03/09/18 07:46 Most recent lab results Calcium 8.0 mg/dL (8.4-10.2) L 03/08/18 05:01 Phosphorus 7.60 mg/dL (2.5-4.5) H 03/06/18 04:38 Magnesium 3.20 mg/dL (1.7-2.3) H 03/04/18 16:41
[2018-03-08] MEDS: LOVENOX SUB-Q SCH (09:07)
[2018-03-08] MEDS: SODIUM CHLORIDE FLUSH SYRINGE 10 ML IV SCH ×2 (09:07→22:57)
--- NOTE | 2018-03-08 12:22 | Query-Infection ---
Dear Date:__03/08/2018 Mail List Processor/CDS:__Marisela Phone#:__[phone] Exercise your independent professional judgment when responding to this query. Questions asked do not imply a particular answer is desired or expected. We greatly appreciate your clarification on this issue. Clinical Documentation States: 82 Year old male was admitted on 03/04/2018 for decreased oral intake over the last 1 week. The IM (Dr. Gaytan) progress note on 03/07/2018 stated "(2) UTI (urinary tract infection) Current Visit: Yes Status: Acute Qualifiers: Urinary tract infection type: site unspecified Hematuria presence: without hematuria Qualified Code(s): N39.0 - Urinary tract infection, site not specified Plan to address problem: Resolved with Levaquin IV antibiotics stable no fever no white count. (3) Uremic encephalopathy Current Visit: Yes Status: Resolved." Clinical findings show: (please check applicable parameters) [place] (03/04): 112 [place] (03/04): 24 Infection, known /suspected, with some of the following indicators; Specify the infection: 3 General parameters [ ] Fever (core temp >38.30C or 100.40F) [ ] Hypothermia (core temp <36C) [X] Heart rate >90 bpm [X] Tachypnea: >20 bpm or pCO2 < 32 mmHg [X] Altered mental status [ ] Significant edema / +ve fluid balance (>20 ml/kg 24 h) [ ] Hyperglycemia (Bl. glucose >110 mg/dl) w/o diabetes Inflammatory parameters [ ] Leukocytosis (white blood cell count >12,000/l) [ ] Leukopenia (white blood cell count <4,000/l) [ ] Bandemia (immature WBC > 10%) [ ] Leucocyte Left Shift [ ] Plasma procalcitonin>2 SD above the normal value Hemodynamic and tissue perfusion parameters [ ] Arterial hypotension(SBP <90 mmHg, MAP <70 mmHg,or a SBP drop >40 mmHg in adults) [ ] Hyperlactatemia (>3 mmol/l) [ ] Anion Gap (> 11mEG/l) [ ] Decreased capillary refill or mottling Organ dysfunction parameters [ ] Arterial hypoxemia (PaO2/FIO2 <300) [ ] Creatinine increase =0.5 mg/dl [ ] Acute oliguria (urine output <0.5 ml | kg |h or 45 mM/l for at least 2 hrs) [ ] Coagulation abnormalities (INR >1.5 or activated partial thromboplastin time >60 s) [ ] Ileus (absent rosie wel sounds) [ ] Thrombocytopenia (platelet count <100,000/l) [ ] Hyperbilirubinemia (plasma total bilirubin >4 mg/dl) According to the clinical indications above, can Bacteremia be further specified? If so, please indicate below and in your Progress Notes and/ or Discharge Summary. Indicate if the condition was present on admission. PHYSICIAN RESPONSE: [ ] Sepsis [ ] Severe Sepsis [ ] Septic Shock [ ] Septicemia [ x] Sepsis now resolved [ ] SIRS due to non-infectious cause with organ dysfunction [ ] SIRS due to non-infectious cause without organ dysfunction [ ] Other: [ ] Comment/Explanation: Present on Admission: [ x] Yes (Y) [ ] Clinically undeterminable (W) [ ] No (N) [ ] Ruled Out Please also document response in your Progress Notes and/or Discharge Summary and indicate if the condition was present on admission Notes: SIRS/ SIRS WITH ORGAN DYSFUNCTION Systemic inflammatory response syndrome (SIRS) generally refers to the systemic response to trauma/feng or other insult such as Acute Myocardial Infarction, Acute Pancreatitis, and Major Surgery with symptoms including fever, tachycardia , tachypnea, and leukocytosis (1). BACTEREMIA Presence of viable bacteria in the circulating blood (2). This term is reserved for patients that do not manifest above SIRS response. SEPTICEMIA Generally refers to a systemic disease associated with the presence of pathological microorganisms or toxins in the blood, which can include bacteria, viruses, fungi or other organisms (1). SEPSIS Generally refers to SIRS due infection (1). SEVERE SEPSIS Generally refers to sepsis associated with acute organ dysfunction (1). SEPTIC SHOCK Generally refers to circulatory failure associated with severe sepsis (2), and defined as hypotension or hypoperfusion despite adequate fluid resuscitation (1 hour) (3). REFERENCES: 1. [employer]/Society of Critical Care Medicine Consensus Conference. Definitions for sepsis and organ failure and guidelines for the use of innovative therapies in sepsis. Critical Care Med 1992;20:864 - 74. 2. Sarath y MM, Padma MP, Stanislaw STOVALL, Navarro E, Angelo D, Kenan D, Tobin J, Moraima SM , Luis JL, Raz G; International Sepsis Definitions Conference. 2000 SCCM/ESICM/ACCP/ATS/SIS International Sepsis Definitions Conference. Intensive Care Med. 2002 Apr;29(4):530-8. Epub 2002Sep 23. Review. PubMed PMID:[id number] 3. ICD-9-CM Official Guidelines for Coding and Reporting 4. Medscape Drugs, Diseases and Procedures references 5. [employer] Textbook of Internal Medicine. 18th Edition MTDD
--- NOTE | 2018-03-08 12:25 | Query- Renal Failure ---
Dear _Hilary Date:__03/08/2018 Inventory Control Supervisor/CDS:__Marisela Phone#:__[phone] Exercise your independent professional judgment when responding to query. Questions asked do not imply a particular answer is desired or expected. We greatly appreciate your clarification on this issue. Clinical Documentation States: 82 Year old male was admitted on 03/04/2018 for decreased oral intake over the last 1 week. The IM (Dr. Gaytan) Progress note on 03/07/2018 stated "- Patient Problems (1) Acute kidney injury Current Visit: Yes Status: Acute Plan to address problem: Agent with acute kidney injury most likely secondary to prerenal azotemia. Continues to improve slowly. Initial BUN/creatinine 149 over 5.1 and now 132 over 4.5. Patient's week with disability. Will require senior care facility placement. Awaiting placement. Acute on chronic kidney disease." Clinical Findings Show: Creatinine 03/04 4.9 03/05 5.3 03/06 4.9 03/07 4.5 03/08 3.6 Please clarify if you mean: Acute Renal Failure with or due to: [ ] Tubular Necrosis [ ] Medullary Necrosis [x ] Vasomotor Nephropathy [ ] Shock Kidney [ ] Tubular Nephrosis [ ] Renal Tubular Stasis [ ] Cortical Necrosis [ ] Acute Renal Failure (unspecified) [ ] Lower Tubular Nephrosis [ ] Other: [ ] Not Applicable Present on Admission: [x ] Yes (Y) [ ] Clinically undeterminable (W) [ ] No (N) Please also document response in your Progress Notes and/or Discharge Summary and indicate if the condition was present on admission. MTDD
[2018-03-08] MEDS: ROCEPHIN/NS 1 GM/50 ML 1 GM/50 ML BAG IV SCH (13:36)
[2018-03-08] MEDS ORDERED: K-DUR PO ONE (15:50)
--- NOTE | 2018-03-08 17:59 | Progress Note ---
Assessment and Plan - Patient Problems (1) Acute kidney injury Current Visit: Yes Status: Acute Plan to address problem: patient with acute kidney injury most likely secondary to prerenal azotemia( prerenal azotemia) on chronic kidney disease. Present on admission. Continues to improve slowly. Will not improve enough to keep patient from requiring dialysis. Patient does not want dialysis. He is alert when he answer questions. Initial BUN/creatinine 149 over 5.1 and now 132 over 3.1. Continue observation and gentle rehydration.. . Will require halfway facility placement. Awaiting placement. Acute on chronic kidney disease. Patient is stable to transfer to the [facility] unit (2) UTI (urinary tract infection) Current Visit: Yes Status: Acute Qualifiers: Urinary tract infection type: site unspecified Hematuria presence: without hematuria Qualified Code(s): N39.0 - Urinary tract infection, site not specified Plan to address problem: Resolved with Levaquin IV antibiotics stable no fever no white count. 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 Patient also was hypovolemic. We'll observe. Ejection fraction 20-25%. (5) COPD (chronic obstructive pulmonary disease) Current Visit: No Status: Chronic Qualifiers: COPD type: unspecified COPD Qualified Code(s): J44.9 - Chronic obstructive pulmonary disease, unspecified History Interval history: Patient alert no new concerns. Primarily complains of weakness, fatigue. No new events overnight. Still refuses dialysis. Family member [id number] at the bedside and answered all questions to her satisfaction. Hospitalist Physical - Constitutional Vitals: Temp Pulse Resp BP Pulse Ox 98.3 F 77 14 127/81 100 03/08/18 12:00 03/08/18 14:10 03/08/18 14:10 03/08/18 14:10 03/08/18 14:10 General appearance: Present: no acute distress, cachectic - EENT Eyes: Present: PERRL, EOM intact. Absent: scleral icterus, conjunctival injection ENT: hearing intact, clear oral mucosa, dentition normal, no oropharyngeal erythema, no poor dentition, no thrush, no ulcerations - Neck Neck: Present: supple, normal ROM - Respiratory Respiratory: bilateral: diminished, rhonchi - Cardiovascular Rhythm: regular Heart Sounds: Present: S1 & S2 - Extremities Extremities: no ischemia, pulses intact, pulses symmetrical, abnormal Extremity abnormal: edema, pulses diminished Peripheral Pulses: within normal limits - Abdominal General gastrointestinal: soft, non-tender, non-distended, normal bowel sounds, no absent bowel sounds, no hepatomegaly, no splenomegaly - Integumentary Integumentary: Present: clear, warm, dry - Psychiatric Psychiatric: other (patient mood is stable cognition is poor at times. Underlying minimal cognitive defect) - Neurologic Neurologic: CNII-XII intact, no focal deficits, moves all extremities Results - Labs CBC & Chem 7: 03/07/18 04:34 03/08/18 05:01 Labs: Laboratory Last Values WBC 7.2 K/mm3 (4.5-11.0) 03/07/18 04:34 RBC 4.66 M/mm3 (3.65-5.03) 03/07/18 04:34 Hgb 11.5 gm/dl (11.8-15.2) L 03/07/18 04:34 Hct 36.8 % (35.5-45.6) 03/07/18 04:34 MCV 79 fl (84-94) L 03/07/18 04:34 MCH 25 pg (28-32) L 03/07/18 04:34 MCHC 31 % (32-34) L 03/07/18 04:34 RDW 21.9 % (13.2-15.2) H 03/07/18 04:34 Plt Count 147 K/mm3 (140-440) 03/07/18 04:34 [place] % (Auto) Barber 03/05/18 04:49 Add Manual Diff Complete 03/07/18 04:34 Total Counted 100 03/07/18 04:34 Seg Neuts % (Manual) 80.0 % (40.0-70.0) H 03/07/18 04:34 Band Neutrophils % 0 % 03/07/18 04:34 Lymphocytes % (Manual) 8.0 % (13.4-35.0) L 03/07/18 04:34 Reactive Lymphs % (Man) 0 % 03/07/18 04:34 Monocytes % (Manual) 8.0 % (0.0-7.3) H 03/07/18 04:34 Eosinophils % (Manual) 1.0 % (0.0-4.3) 03/07/18 04:34 Basophils % (Manual) 0 % (0.0-1.8) 03/07/18 04:34 Metamyelocytes % 0 % 03/07/18 04:34 Myelocytes % 3.0 % 03/07/18 04:34 Promyelocytes % 0 % 03/07/18 04:34 Blast Cells % 0 % 03/07/18 04:34 Nucleated RBC % 3.0 % (0.0-0.9) H 03/07/18 04:34 Seg Neutrophils # Man 5.8 K/mm3 (1.8-7.7) 03/07/18 04:34 Band Neutrophils # 0.0 K/mm3 03/07/18 04:34 Lymphocytes # (Manual) 0.6 K/mm3 (1.2-5.4) L 03/07/18 04:34 Abs React Lymphs (Man) 0.0 K/mm3 03/07/18 04:34 Monocytes # (Manual) 0.6 K/mm3 (0.0-0.8) 03/07/18 04:34 Eosinophils # (Manual) 0.1 K/mm3 (0.0-0.4) 03/07/18 04:34 Basophils # (Manual) 0.0 K/mm3 (0.0-0.1) 03/07/18 04:34 Metamyelocytes # 0.0 K/mm3 03/07/18 04:34 Myelocytes # 0.2 K/mm3 03/07/18 04:34 Promyelocytes # 0.0 K/mm3 03/07/18 04:34 Blast Cells # 0.0 K/mm3 03/07/18 04:34 WBC Morphology Not Reportable 03/07/18 04:34 Hypersegmented Neuts Not Reportable 03/07/18 04:34 Hyposegmented Neuts Not Reportable 03/07/18 04:34 Hypogranular Neuts Not Reportable 03/07/18 04:34 Smudge Cells Not Reportable 03/07/18 04:34 Toxic Granulation Not Reportable 03/07/18 04:34 Toxic Vacuolation Not Reportable 03/07/18 04:34 Dohle Bodies Not Reportable 03/07/18 04:34 Pelger-Huet Anomaly Not Reportable 03/07/18 04:34 Joshua Rods Not Reportable 03/07/18 04:34 Platelet Estimate Consistent w auto 03/07/18 04:34 Clumped Platelets Not Reportable 03/07/18 04:34 Plt Clumps, EDTA Not Reportable 03/07/18 04:34 Large Platelets Not Reportable 03/07/18 04:34 Giant Platelets Not Reportable 03/07/18 04:34 Platelet Satelliting Not Reportable 03/07/18 04:34 Plt Morphology Comment Not Reportable 03/07/18 04:34 RBC Morphology Not Reportable 03/07/18 04:34 Dimorphic RBCs Not Reportable 03/07/18 04:34 Polychromasia Not Reportable 03/07/18 04:34 Hypochromasia Not Reportable 03/07/18 04:34 Poikilocytosis Not Reportable 03/07/18 04:34 Anisocytosis 1+ 03/07/18 04:34 Microcytosis Not Reportable 03/07/18 04:34 Macrocytosis Not Reportable 03/07/18 04:34 Spherocytes Not Reportable 03/07/18 04:34 Pappenheimer Bodies Not Reportable 03/07/18 04:34 Sickle Cells Not Reportable 03/07/18 04:34 Target Cells Not Reportable 03/07/18 04:34 Tear Drop Cells Not Reportable 03/07/18 04:34 Ovalocytes Not Reportable 03/07/18 04:34 Helmet Cells Not Reportable 03/07/18 04:34 Cline-Satilla Bodies Not Reportable 03/07/18 04:34 Pandora Rings Not Reportable 03/07/18 04:34 [place] Cells Not Reportable 03/07/18 04:34 Bite Cells Not Reportable 03/07/18 04:34 Crenated Cell Not Reportable 03/07/18 04:34 Elliptocytes 1+ 03/07/18 04:34 Acanthocytes (Spur) Not Reportable 03/07/18 04:34 Rouleaux Not Reportable 03/07/18 04:34 Hemoglobin C Crystals Not Reportable 03/07/18 04:34 Schistocytes Not Reportable 03/07/18 04:34 Malaria parasites Not Reportable 03/07/18 04:34 Ketan Bodies Not Reportable 03/07/18 04:34 Hem Pathologist Commnt No 03/07/18 04:34 PT 17.3 Sec. (12.2-14.9) H 03/04/18 16:41 INR 1.34 (0.87-1.13) H 03/04/18 16:41 POC ABG pH 7.416 (7.35-7.45) 03/04/18 17:03 POC ABG pCO2 25.0 (35-45) L 03/04/18 17:03 POC ABG pO2 87 (80-105) 03/04/18 17:03 POC ABG HCO3 16.1 03/04/18 17:03 POC ABG Total CO2 17 03/04/18 17:03 POC ABG O2 Sat 97 03/04/18 17:03 POC ABG Base Excess -8 03/04/18 17:03 FiO2 21 % 03/04/18 17:03 Sodium 145 mmol/L (137-145) 03/08/18 05:01 Potassium 3.2 mmol/L (3.6-5.0) L D 03/08/18 05:01 Chloride 106.0 mmol/L (98-107) 03/08/18 05:01 Carbon Dioxide 19 mmol/L (22-30) L 03/08/18 05:01 Anion Gap 23 mmol/L 03/08/18 05:01 BUN 112 mg/dL (9-20) H 03/08/18 05:01 Creatinine 3.6 mg/dL (0.8-1.5) H 03/08/18 05:01 Estimated GFR 20 ml/min 03/08/18 05:01 BUN/Creatinine Ratio 31 % 03/08/18 05:01 Glucose 108 mg/dL (75-100) H 03/08/18 05:01 POC Glucose 109 (70-105) H 03/08/18 12:14 Lactic Acid 2.10 mmol/L (0.7-2.0) H* 03/04/18 16:41 Calcium 8.0 mg/dL (8.4-10.2) L 03/08/18 05:01 Phosphorus 7.60 mg/dL (2.5-4.5) H 03/06/18 04:38 Magnesium 3.20 mg/dL (1.7-2.3) H 03/04/18 16:41 Total Bilirubin 2.20 mg/dL (0.1-1.2) H 03/04/18 16:41 AST 32 units/L (5-40) 03/04/18 16:41 ALT 39 units/L (7-56) 03/04/18 16:41 Alkaline Phosphatase 259 units/L (35-129) H 03/04/18 16:41 Total Creatine Kinase 70 units/L (55-170) 03/05/18 14:38 CK-MB (CK-2) 3.3 ng/mL (0.0-4.0) 03/05/18 14:38 CK-MB (CK-2) Rel Index 4.7 (0-4) H 03/05/18 14:38 Troponin T 0.065 ng/mL (0.00-0.029) H 03/05/18 14:38 Total Protein 6.2 g/dL (6.3-8.2) L 03/04/18 16:41 Albumin 3.7 g/dL (3.9-5) L 03/04/18 16:41 Albumin/Globulin Ratio 1.5 % 03/04/18 16:41 Triglycerides 106 mg/dL (2-149) 03/04/18 16:41 Cholesterol 117 mg/dL (50-199) 03/04/18 16:41 LDL Cholesterol Direct 60 mg/dL (50-130) 03/04/18 16:41 HDL Cholesterol 20 mg/dL (40-59) L 03/04/18 16:41 Cholesterol/HDL Ratio 5.85 % 03/04/18 16:41 TSH 0.433 mlU/mL (0.270-4.200) 03/04/18 16:41 Urine Color Latony[place] (Yellow) 03/04/18 18:38 Urine Turbidity Cloudy (Clear) 03/04/18 18:38 Urine pH 5.0 (5.0-7.0) 03/04/18 18:38 Ur Specific [place] 1.012 (1.003-1.030) 03/04/18 18:38 Urine Protein 100 mg/dl mg/dL (Negative) 03/04/18 18:38 Urine Glucose (UA) Neg mg/dL (Negative) 03/04/18 18:38 Urine Ketones Neg mg/dL (Negative) 03/04/18 18:38 Urine Blood Lg (Negative) 03/04/18 18:38 Urine Nitrite Neg (Negative) 03/04/18 18:38 Urine Bilirubin Neg (Negative) 03/04/18 18:38 Urine Urobilinogen 2.0 mg/dL (<2.0) 03/04/18 18:38 Ur Leukocyte Esterase Lg (Negative) 03/04/18 18:38 Urine WBC (Auto) > 182.0 /HPF (0.0-6.0) H 03/04/18 18:38 Urine RBC (Auto) > 182.0 /HPF (0.0-6.0) 03/04/18 18:38 Urine Bacteria (Auto) 1+ /HPF (Negative) 03/04/18 18:38 Urine WBC Clumps 3+ /HPF 03/04/18 18:38 Urine Mucus Few /HPF 03/04/18 18:38 Urine Opiates Screen Presumptive negative 03/04/18 18:38 Urine Methadone Screen Presumptive negative 03/04/18 18:38 Ur Barbiturates Screen Presumptive negative 03/04/18 18:38 Ur Phencyclidine Scrn Presumptive negative 03/04/18 18:38 Ur Amphetamines Screen Presumptive negative 03/04/18 18:38 U Benzodiazepines Scrn Presumptive negative 03/04/18 18:38 Urine Cocaine Screen Presumptive negative 03/04/18 18:38 U Marijuana (THC) Screen Presumptive negative 03/04/18 18:38 Drugs of Abuse Note Disclamer 03/04/18 18:38 Plasma/Serum Alcohol < 0.01 % (0-0.07) 03/04/18 16:41
--- NOTE | 2018-03-09 07:43 | Progress Note ---
Assessment and Plan Assessment and plan: 82-year-old man with past medical history significant for CKD, hypertension, hyperlipidemia, CHF was admitted for the management of acute on chronic KD Acute on chronic kidney disease - Nephrology is following - Creatinine is trending down was 2.7 this morning Hypertension - Controlled CHF - Continue carvedilol Depression - Continue Zoloft Urinary tract infection -Continue ceftriaxone Hypokalemia - repleted DVT prophylaxis - On Lovenox Disposition - pending SNF placement. History Interval history: Patient was seen and evaluated, no new complaints, patient sleep well. Hospitalist Physical - Physical exam Narrative exam: Not in cardiopulmonary distress. The patient appeared well nourished and normally developed. Vital signs as documented. Head exam is unremarkable. No scleral icterus . Neck is without jugular venous distension, thyromegaly, or carotid bruits. Lungs are clear to auscultation. Cardiac exam reveals regular rate and Rhythm. First and second heart sounds normal. No murmurs, rubs or gallops. Abdominal exam reveals normal bowel sounds, no masses, no organomegaly and no aortic enlargement. Extremities are nonedematous and both femoral and pedal pulses are normal. [employer]: Alert and oriented. - Constitutional Vitals: Temp Pulse Resp BP Pulse Ox 98.3 F 76 18 121/76 98 03/08/18 12:00 03/09/18 03:00 03/09/18 03:00 03/09/18 03:00 03/09/18 03:00 General appearance: Present: no acute distress, cachectic Results - Labs CBC & Chem 7: 03/07/18 04:34 03/09/18 07:46 Labs: Laboratory Last Values WBC 7.2 K/mm3 (4.5-11.0) 03/07/18 04:34 RBC 4.66 M/mm3 (3.65-5.03) 03/07/18 04:34 Hgb 11.5 gm/dl (11.8-15.2) L 03/07/18 04:34 Hct 36.8 % (35.5-45.6) 03/07/18 04:34 MCV 79 fl (84-94) L 03/07/18 04:34 MCH 25 pg (28-32) L 03/07/18 04:34 MCHC 31 % (32-34) L 03/07/18 04:34 RDW 21.9 % (13.2-15.2) H 03/07/18 04:34 Plt Count 147 K/mm3 (140-440) 03/07/18 04:34 [place] % (Auto) Coat Agent 03/05/18 04:49 Add Manual Diff Complete 03/07/18 04:34 Total Counted 100 03/07/18 04:34 Seg Neuts % (Manual) 80.0 % (40.0-70.0) H 03/07/18 04:34 Band Neutrophils % 0 % 03/07/18 04:34 Lymphocytes % (Manual) 8.0 % (13.4-35.0) L 03/07/18 04:34 Reactive Lymphs % (Man) 0 % 03/07/18 04:34 Monocytes % (Manual) 8.0 % (0.0-7.3) H 03/07/18 04:34 Eosinophils % (Manual) 1.0 % (0.0-4.3) 03/07/18 04:34 Basophils % (Manual) 0 % (0.0-1.8) 03/07/18 04:34 Metamyelocytes % 0 % 03/07/18 04:34 Myelocytes % 3.0 % 03/07/18 04:34 Promyelocytes % 0 % 03/07/18 04:34 Blast Cells % 0 % 03/07/18 04:34 Nucleated RBC % 3.0 % (0.0-0.9) H 03/07/18 04:34 Seg Neutrophils # Man 5.8 K/mm3 (1.8-7.7) 03/07/18 04:34 Band Neutrophils # 0.0 K/mm3 03/07/18 04:34 Lymphocytes # (Manual) 0.6 K/mm3 (1.2-5.4) L 03/07/18 04:34 Abs React Lymphs (Man) 0.0 K/mm3 03/07/18 04:34 Monocytes # (Manual) 0.6 K/mm3 (0.0-0.8) 03/07/18 04:34 Eosinophils # (Manual) 0.1 K/mm3 (0.0-0.4) 03/07/18 04:34 Basophils # (Manual) 0.0 K/mm3 (0.0-0.1) 03/07/18 04:34 Metamyelocytes # 0.0 K/mm3 03/07/18 04:34 Myelocytes # 0.2 K/mm3 03/07/18 04:34 Promyelocytes # 0.0 K/mm3 03/07/18 04:34 Blast Cells # 0.0 K/mm3 03/07/18 04:34 WBC Morphology Not Reportable 03/07/18 04:34 Hypersegmented Neuts Not Reportable 03/07/18 04:34 Hyposegmented Neuts Not Reportable 03/07/18 04:34 Hypogranular Neuts Not Reportable 03/07/18 04:34 Smudge Cells Not Reportable 03/07/18 04:34 Toxic Granulation Not Reportable 03/07/18 04:34 Toxic Vacuolation Not Reportable 03/07/18 04:34 Dohle Bodies Not Reportable 03/07/18 04:34 Pelger-Huet Anomaly Not Reportable 03/07/18 04:34 Joshua Rods Not Reportable 03/07/18 04:34 Platelet Estimate Consistent w auto 03/07/18 04:34 Clumped Platelets Not Reportable 03/07/18 04:34 Plt Clumps, EDTA Not Reportable 03/07/18 04:34 Large Platelets Not Reportable 03/07/18 04:34 Giant Platelets Not Reportable 03/07/18 04:34 Platelet Satelliting Not Reportable 03/07/18 04:34 Plt Morphology Comment Not Reportable 03/07/18 04:34 RBC Morphology Not Reportable 03/07/18 04:34 Dimorphic RBCs Not Reportable 03/07/18 04:34 Polychromasia Not Reportable 03/07/18 04:34 Hypochromasia Not Reportable 03/07/18 04:34 Poikilocytosis Not Reportable 03/07/18 04:34 Anisocytosis 1+ 03/07/18 04:34 Microcytosis Not Reportable 03/07/18 04:34 Macrocytosis Not Reportable 03/07/18 04:34 Spherocytes Not Reportable 03/07/18 04:34 Pappenheimer Bodies Not Reportable 03/07/18 04:34 Sickle Cells Not Reportable 03/07/18 04:34 Target Cells Not Reportable 03/07/18 04:34 Tear Drop Cells Not Reportable 03/07/18 04:34 Ovalocytes Not Reportable 03/07/18 04:34 Helmet Cells Not Reportable 03/07/18 04:34 [place]line[place] Bodies Not Reportable 03/07/18 04:34 [place] Rings Not Reportable 03/07/18 04:34 [place] Cells Not Reportable 03/07/18 04:34 Bite Cells Not Reportable 03/07/18 04:34 Crenated Cell Not Reportable 03/07/18 04:34 Elliptocytes 1+ 03/07/18 04:34 Acanthocytes (Spur) Not Reportable 03/07/18 04:34 Rouleaux Not Reportable 03/07/18 04:34 Hemoglobin C Crystals Not Reportable 03/07/18 04:34 Schistocytes Not Reportable 03/07/18 04:34 Malaria parasites Not Reportable 03/07/18 04:34 Ketan Bodies Not Reportable 03/07/18 04:34 Hem Pathologist Commnt No 03/07/18 04:34 PT 17.3 Sec. (12.2-14.9) H 03/04/18 16:41 INR 1.34 (0.87-1.13) H 03/04/18 16:41 POC ABG pH 7.416 (7.35-7.45) 03/04/18 17:03 POC ABG pCO2 25.0 (35-45) L 03/04/18 17:03 POC ABG pO2 87 (80-105) 03/04/18 17:03 POC ABG HCO3 16.1 03/04/18 17:03 POC ABG Total CO2 17 03/04/18 17:03 POC ABG O2 Sat 97 03/04/18 17:03 POC ABG Base Excess -8 03/04/18 17:03 FiO2 21 % 03/04/18 17:03 Sodium 145 mmol/L (137-145) 03/08/18 05:01 Potassium 3.2 mmol/L (3.6-5.0) L D 03/08/18 05:01 Chloride 106.0 mmol/L (98-107) 03/08/18 05:01 Carbon Dioxide 19 mmol/L (22-30) L 03/08/18 05:01 Anion Gap 23 mmol/L 03/08/18 05:01 BUN 112 mg/dL (9-20) H 03/08/18 05:01 Creatinine 3.6 mg/dL (0.8-1.5) H 03/08/18 05:01 Estimated GFR 20 ml/min 03/08/18 05:01 BUN/Creatinine Ratio 31 % 03/08/18 05:01 Glucose 108 mg/dL (75-100) H 03/08/18 05:01 POC Glucose 116 (70-105) H 03/08/18 21:54 Lactic Acid 2.10 mmol/L (0.7-2.0) H* 03/04/18 16:41 Calcium 8.0 mg/dL (8.4-10.2) L 03/08/18 05:01 Phosphorus 7.60 mg/dL (2.5-4.5) H 03/06/18 04:38 Magnesium 3.20 mg/dL (1.7-2.3) H 03/04/18 16:41 Total Bilirubin 2.20 mg/dL (0.1-1.2) H 03/04/18 16:41 AST 32 units/L (5-40) 03/04/18 16:41 ALT 39 units/L (7-56) 03/04/18 16:41 Alkaline Phosphatase 259 units/L (35-129) H 03/04/18 16:41 Total Creatine Kinase 70 units/L (55-170) 03/05/18 14:38 CK-MB (CK-2) 3.3 ng/mL (0.0-4.0) 03/05/18 14:38 CK-MB (CK-2) Rel Index 4.7 (0-4) H 03/05/18 14:38 Troponin T 0.065 ng/mL (0.00-0.029) H 03/05/18 14:38 Total Protein 6.2 g/dL (6.3-8.2) L 03/04/18 16:41 Albumin 3.7 g/dL (3.9-5) L 03/04/18 16:41 Albumin/Globulin Ratio 1.5 % 03/04/18 16:41 Triglycerides 106 mg/dL (2-149) 03/04/18 16:41 Cholesterol 117 mg/dL (50-199) 03/04/18 16:41 LDL Cholesterol Direct 60 mg/dL (50-130) 03/04/18 16:41 HDL Cholesterol 20 mg/dL (40-59) L 03/04/18 16:41 Cholesterol/HDL Ratio 5.85 % 03/04/18 16:41 TSH 0.433 mlU/mL (0.270-4.200) 03/04/18 16:41 Urine Color Latonya (Yellow) 03/04/18 18:38 Urine Turbidity Cloudy (Clear) 03/04/18 18:38 Urine pH 5.0 (5.0-7.0) 03/04/18 18:38 Ur Specific [place] 1.012 (1.003-1.030) 03/04/18 18:38 Urine Protein 100 mg/dl mg/dL (Negative) 03/04/18 18:38 Urine Glucose (UA) Neg mg/dL (Negative) 03/04/18 18:38 Urine Ketones Neg mg/dL (Negative) 03/04/18 18:38 Urine Blood Lg (Negative) 03/04/18 18:38 Urine Nitrite Neg (Negative) 03/04/18 18:38 Urine Bilirubin Neg (Negative) 03/04/18 18:38 Urine Urobilinogen 2.0 mg/dL (<2.0) 03/04/18 18:38 Ur Leukocyte Esterase Lg (Negative) 03/04/18 18:38 Urine WBC (Auto) > 182.0 /HPF (0.0-6.0) H 03/04/18 18:38 Urine RBC (Auto) > 182.0 /HPF (0.0-6.0) 03/04/18 18:38 Urine Bacteria (Auto) 1+ /HPF (Negative) 03/04/18 18:38 Urine WBC Clumps 3+ /HPF 03/04/18 18:38 Urine Mucus Few /HPF 03/04/18 18:38 Urine Opiates Screen Presumptive negative 03/04/18 18:38 Urine Methadone Screen Presumptive negative 03/04/18 18:38 Ur Barbiturates Screen Presumptive negative 03/04/18 18:38 Ur Phencyclidine Scrn Presumptive negative 03/04/18 18:38 Ur Amphetamines Screen Presumptive negative 03/04/18 18:38 U Benzodiazepines Scrn Presumptive negative 03/04/18 18:38 Urine Cocaine Screen Presumptive negative 03/04/18 18:38 U Marijuana (THC) Screen Presumptive negative 03/04/18 18:38 Drugs of Abuse Note Disclamer 03/04/18 18:38 Plasma/Serum Alcohol < 0.01 % (0-0.07) 03/04/18 16:41
[2018-03-09 09:03] LABS: Calcium 7.7 mg/dL (8.4-10.2)
[2018-03-09] MEDS: PLAVIX PO SCH (09:25)
[2018-03-09] MEDS: ZOLOFT PO SCH (09:25)
[2018-03-09] MEDS: LOVENOX SUB-Q SCH (09:25)
[2018-03-09] MEDS: COREG PO SCH ×2 (09:26→22:10)
[2018-03-09] MEDS: ROCEPHIN/NS 1 GM/50 ML 1 GM/50 ML BAG IV SCH (11:00)
[2018-03-09] MEDS ORDERED: K-DUR PO ONE (12:00)
[2018-03-09] MEDS: SODIUM CHLORIDE FLUSH SYRINGE 10 ML IV SCH ×2 (12:32→22:12)
[2018-03-09] MEDS: D5W 1,000 ML IV SCH (14:32)
--- NOTE | 2018-03-09 21:37 | Progress Note ---
Assessment and Plan 1. Acute Kidney injury: MELISSA superimposed on CKD stage 3 in the setting of CHF. Suspect Cardio-renal syndrome. Renal function continue to improve. Monitor. 2. Hypokalemia: Replete K. 3. Hypernatremia: Improved. 4. CHF with volume overload: Lasix prn. 5. UTI. Subjective Date of service: 03/09/18 Principal diagnosis: acute kidney injury. Interval history: Patient was seen and examined at the bedside. Objective - Vital Signs Vital signs: Vital Signs - 12hr 03/09/18 03/09/18 03/09/18 10:00 14:37 20:09 Temperature 98.0 F 98.6 F Pulse Rate 73 76 Pulse Rate [ 73 From Monitor] Respiratory 20 18 Rate Blood Pressure 111/73 125/89 O2 Sat by Pulse 98 Oximetry - General Appearance General appearance: well-developed, appears stated age, other (not in distress) EENT: ATNC, hearing intact Neck: supple Respiratory: Present: Clear to Ascultation Cardiology: S1S2, no murmurs Gastrointestinal: normoactive bowel sounds, no tenderness, no distended Integumentary: no rash, warm and dry Neurologic: no focal deficit, no asterixis, confused Musculoskeletal: other (trace dependent edema noted) Psychiatric: cooperative - Lab 03/07/18 04:34 03/09/18 07:46 Most recent lab results Calcium 7.7 mg/dL (8.4-10.2) L 03/09/18 07:46 Phosphorus 7.60 mg/dL (2.5-4.5) H 03/06/18 04:38 Magnesium 3.20 mg/dL (1.7-2.3) H 03/04/18 16:41
--- NOTE | 2018-03-10 08:05 | Progress Note ---
Assessment and Plan Assessment and plan: 82-year-old man with past medical history significant for CKD, hypertension, hyperlipidemia, CHF was admitted for the management of acute on chronic KD Acute on chronic kidney disease - Nephrology is following - Creatinine is trending down was 2.7 yesterday morning, today's result is pending Hypertension - Controlled CHF - Continue carvedilol Depression - Continue Zoloft Urinary tract infection -Continue ceftriaxone Hypokalemia - repleted DVT prophylaxis - On Lovenox Disposition - pending SNF placement. History Interval history: Patient was seen and evaluated, no new complaints, patient said feeling well. Hospitalist Physical - Physical exam Narrative exam: Not in cardiopulmonary distress. The patient appeared well nourished and normally developed. Vital signs as documented. Head exam is unremarkable. No scleral icterus . Neck is without jugular venous distension, thyromegaly, or carotid bruits. Lungs are clear to auscultation. Cardiac exam reveals regular rate and Rhythm. First and second heart sounds normal. No murmurs, rubs or gallops. Abdominal exam reveals normal bowel sounds, no masses, no organomegaly and no aortic enlargement. Extremities are nonedematous and both femoral and pedal pulses are normal. WORK COUNSELOR: Alert and oriented. - Constitutional Vitals: Temp Pulse Resp BP Pulse Ox 98.3 F 77 20 125/82 100 03/10/18 02:09 03/10/18 02:09 03/10/18 02:09 03/10/18 02:09 03/10/18 02:09 General appearance: Present: no acute distress, cachectic Results - Labs CBC & Chem 7: 03/07/18 04:34 03/09/18 07:46 Labs: Laboratory Last Values WBC 7.2 K/mm3 (4.5-11.0) 03/07/18 04:34 RBC 4.66 M/mm3 (3.65-5.03) 03/07/18 04:34 Hgb 11.5 gm/dl (11.8-15.2) L 03/07/18 04:34 Hct 36.8 % (35.5-45.6) 03/07/18 04:34 MCV 79 fl (84-94) L 03/07/18 04:34 MCH 25 pg (28-32) L 03/07/18 04:34 MCHC 31 % (32-34) L 03/07/18 04:34 RDW 21.9 % (13.2-15.2) H 03/07/18 04:34 Plt Count 147 K/mm3 (140-440) 03/07/18 04:34 [place] % (Auto) Managing Director 03/05/18 04:49 Add Manual Diff Complete 03/07/18 04:34 Total Counted 100 03/07/18 04:34 Seg Neuts % (Manual) 80.0 % (40.0-70.0) H 03/07/18 04:34 Band Neutrophils % 0 % 03/07/18 04:34 Lymphocytes % (Manual) 8.0 % (13.4-35.0) L 03/07/18 04:34 Reactive Lymphs % (Man) 0 % 03/07/18 04:34 Monocytes % (Manual) 8.0 % (0.0-7.3) H 03/07/18 04:34 Eosinophils % (Manual) 1.0 % (0.0-4.3) 03/07/18 04:34 Basophils % (Manual) 0 % (0.0-1.8) 03/07/18 04:34 Metamyelocytes % 0 % 03/07/18 04:34 Myelocytes % 3.0 % 03/07/18 04:34 Promyelocytes % 0 % 03/07/18 04:34 Blast Cells % 0 % 03/07/18 04:34 Nucleated RBC % 3.0 % (0.0-0.9) H 03/07/18 04:34 Seg Neutrophils # Man 5.8 K/mm3 (1.8-7.7) 03/07/18 04:34 Band Neutrophils # 0.0 K/mm3 03/07/18 04:34 Lymphocytes # (Manual) 0.6 K/mm3 (1.2-5.4) L 03/07/18 04:34 Abs React Lymphs (Man) 0.0 K/mm3 03/07/18 04:34 Monocytes # (Manual) 0.6 K/mm3 (0.0-0.8) 03/07/18 04:34 Eosinophils # (Manual) 0.1 K/mm3 (0.0-0.4) 03/07/18 04:34 Basophils # (Manual) 0.0 K/mm3 (0.0-0.1) 03/07/18 04:34 Metamyelocytes # 0.0 K/mm3 03/07/18 04:34 Myelocytes # 0.2 K/mm3 03/07/18 04:34 Promyelocytes # 0.0 K/mm3 03/07/18 04:34 Blast Cells # 0.0 K/mm3 03/07/18 04:34 WBC Morphology Not Reportable 03/07/18 04:34 Hypersegmented Neuts Not Reportable 03/07/18 04:34 Hyposegmented Neuts Not Reportable 03/07/18 04:34 Hypogranular Neuts Not Reportable 03/07/18 04:34 Smudge Cells Not Reportable 03/07/18 04:34 Toxic Granulation Not Reportable 03/07/18 04:34 Toxic Vacuolation Not Reportable 03/07/18 04:34 Dohle Bodies Not Reportable 03/07/18 04:34 Pelger-Huet Anomaly Not Reportable 03/07/18 04:34 Joshua Rods Not Reportable 03/07/18 04:34 Platelet Estimate Consistent w auto 03/07/18 04:34 Clumped Platelets Not Reportable 03/07/18 04:34 Plt Clumps, EDTA Not Reportable 03/07/18 04:34 Large Platelets Not Reportable 03/07/18 04:34 Giant Platelets Not Reportable 03/07/18 04:34 Platelet Satelliting Not Reportable 03/07/18 04:34 Plt Morphology Comment Not Reportable 03/07/18 04:34 RBC Morphology Not Reportable 03/07/18 04:34 Dimorphic RBCs Not Reportable 03/07/18 04:34 Polychromasia Not Reportable 03/07/18 04:34 Hypochromasia Not Reportable 03/07/18 04:34 Poikilocytosis Not Reportable 03/07/18 04:34 Anisocytosis 1+ 03/07/18 04:34 Microcytosis Not Reportable 03/07/18 04:34 Macrocytosis Not Reportable 03/07/18 04:34 Spherocytes Not Reportable 03/07/18 04:34 Pappenheimer Bodies Not Reportable 03/07/18 04:34 Sickle Cells Not Reportable 03/07/18 04:34 Target Cells Not Reportable 03/07/18 04:34 Tear Drop Cells Not Reportable 03/07/18 04:34 Ovalocytes Not Reportable 03/07/18 04:34 Helmet Cells Not Reportable 03/07/18 04:34 Cline-[place] Bodies Not Reportable 03/07/18 04:34 [place] Rings Not Reportable 03/07/18 04:34 [place] Cells Not Reportable 03/07/18 04:34 Bite Cells Not Reportable 03/07/18 04:34 Crenated Cell Not Reportable 03/07/18 04:34 Elliptocytes 1+ 03/07/18 04:34 Acanthocytes (Spur) Not Reportable 03/07/18 04:34 Rouleaux Not Reportable 03/07/18 04:34 Hemoglobin C Crystals Not Reportable 03/07/18 04:34 Schistocytes Not Reportable 03/07/18 04:34 Malaria parasites Not Reportable 03/07/18 04:34 Ketan Bodies Not Reportable 03/07/18 04:34 Hem Pathologist Commnt No 03/07/18 04:34 PT 17.3 Sec. (12.2-14.9) H 03/04/18 16:41 INR 1.34 (0.87-1.13) H 03/04/18 16:41 POC ABG pH 7.416 (7.35-7.45) 03/04/18 17:03 POC ABG pCO2 25.0 (35-45) L 03/04/18 17:03 POC ABG pO2 87 (80-105) 03/04/18 17:03 POC ABG HCO3 16.1 03/04/18 17:03 POC ABG Total CO2 17 03/04/18 17:03 POC ABG O2 Sat 97 03/04/18 17:03 POC ABG Base Excess -8 03/04/18 17:03 FiO2 21 % 03/04/18 17:03 Sodium 141 mmol/L (137-145) 03/09/18 07:46 Potassium 3.4 mmol/L (3.6-5.0) L 03/09/18 07:46 Chloride 105.0 mmol/L (98-107) 03/09/18 07:46 Carbon Dioxide 20 mmol/L (22-30) L 03/09/18 07:46 Anion Gap 19 mmol/L 03/09/18 07:46 BUN 94 mg/dL (9-20) H 03/09/18 07:46 Creatinine 2.7 mg/dL (0.8-1.5) H 03/09/18 07:46 Estimated GFR 27 ml/min 03/09/18 07:46 BUN/Creatinine Ratio 35 % 03/09/18 07:46 Glucose 92 mg/dL (75-100) 03/09/18 07:46 POC Glucose 116 (70-105) H 03/08/18 21:54 Lactic Acid 2.10 mmol/L (0.7-2.0) H* 03/04/18 16:41 Calcium 7.7 mg/dL (8.4-10.2) L 03/09/18 07:46 Phosphorus 7.60 mg/dL (2.5-4.5) H 03/06/18 04:38 Magnesium 3.20 mg/dL (1.7-2.3) H 03/04/18 16:41 Total Bilirubin 2.20 mg/dL (0.1-1.2) H 03/04/18 16:41 AST 32 units/L (5-40) 03/04/18 16:41 ALT 39 units/L (7-56) 03/04/18 16:41 Alkaline Phosphatase 259 units/L (35-129) H 03/04/18 16:41 Total Creatine Kinase 70 units/L (55-170) 03/05/18 14:38 CK-MB (CK-2) 3.3 ng/mL (0.0-4.0) 03/05/18 14:38 CK-MB (CK-2) Rel Index 4.7 (0-4) H 03/05/18 14:38 Troponin T 0.065 ng/mL (0.00-0.029) H 03/05/18 14:38 Total Protein 6.2 g/dL (6.3-8.2) L 03/04/18 16:41 Albumin 3.7 g/dL (3.9-5) L 03/04/18 16:41 Albumin/Globulin Ratio 1.5 % 03/04/18 16:41 Triglycerides 106 mg/dL (2-149) 03/04/18 16:41 Cholesterol 117 mg/dL (50-199) 03/04/18 16:41 LDL Cholesterol Direct 60 mg/dL (50-130) 03/04/18 16:41 HDL Cholesterol 20 mg/dL (40-59) L 03/04/18 16:41 Cholesterol/HDL Ratio 5.85 % 03/04/18 16:41 TSH 0.433 mlU/mL (0.270-4.200) 03/04/18 16:41 Urine Color Latonya (Yellow) 03/04/18 18:38 Urine Turbidity Cloudy (Clear) 03/04/18 18:38 Urine pH 5.0 (5.0-7.0) 03/04/18 18:38 Ur Specific [place] 1.012 (1.003-1.030) 03/04/18 18:38 Urine Protein 100 mg/dl mg/dL (Negative) 03/04/18 18:38 Urine Glucose (UA) Neg mg/dL (Negative) 03/04/18 18:38 Urine Ketones Neg mg/dL (Negative) 03/04/18 18:38 Urine Blood Lg (Negative) 03/04/18 18:38 Urine Nitrite Neg (Negative) 03/04/18 18:38 Urine Bilirubin Neg (Negative) 03/04/18 18:38 Urine Urobilinogen 2.0 mg/dL (<2.0) 03/04/18 18:38 Ur Leukocyte Esterase Lg (Negative) 03/04/18 18:38 Urine WBC (Auto) > 182.0 /HPF (0.0-6.0) H 03/04/18 18:38 Urine RBC (Auto) > 182.0 /HPF (0.0-6.0) 03/04/18 18:38 Urine Bacteria (Auto) 1+ /HPF (Negative) 03/04/18 18:38 Urine WBC Clumps 3+ /HPF 03/04/18 18:38 Urine Mucus Few /HPF 03/04/18 18:38 Urine Opiates Screen Presumptive negative 03/04/18 18:38 Urine Methadone Screen Presumptive negative 03/04/18 18:38 Ur Barbiturates Screen Presumptive negative 03/04/18 18:38 Ur Phencyclidine Scrn Presumptive negative 03/04/18 18:38 Ur Amphetamines Screen Presumptive negative 03/04/18 18:38 U Benzodiazepines Scrn Presumptive negative 03/04/18 18:38 Urine Cocaine Screen Presumptive negative 03/04/18 18:38 U Marijuana (THC) Screen Presumptive negative 03/04/18 18:38 Drugs of Abuse Note Disclamer 03/04/18 18:38 Plasma/Serum Alcohol < 0.01 % (0-0.07) 03/04/18 16:41
[2018-03-10 08:17] VITALS: BP 129/86
[2018-03-10 08:41] LABS: Calcium 7.9 mg/dL (8.4-10.2)
--- NOTE | 2018-03-10 08:47 | Progress Note ---
Assessment and Plan 1. Acute Kidney injury: MELISSA superimposed on CKD stage 3 in the setting of CHF. Suspect Cardio-renal syndrome. Renal function continue to improve. Monitor. 2. Hypokalemia: K level is better. 3. Hypernatremia: Improved. 4. CHF with volume overload: Lasix prn. 5. UTI. F/u with me in 1-2 weeks. Subjective Date of service: 03/10/18 Principal diagnosis: acute kidney injury. Interval history: Patient was seen and examined at the bedside. Objective - Vital Signs Vital signs: Vital Signs - 12hr 03/09/18 03/09/18 03/10/18 22:00 22:10 02:09 Temperature 98.3 F Pulse Rate 76 76 77 Pulse Rate [ 76 From Monitor] Respiratory 20 Rate Blood Pressure 125/89 125/82 O2 Sat by Pulse 99 100 Oximetry 03/10/18 08:01 Temperature 97.5 F L Pulse Rate 76 Pulse Rate [ From Monitor] Respiratory 18 Rate Blood Pressure 129/86 O2 Sat by Pulse 98 Oximetry - General Appearance General appearance: well-developed, well-nourished, appears stated age, other ( not in distress) EENT: ATNC, PERRL, vision intact, hearing diminished Neck: supple Respiratory: Present: Clear to Ascultation Cardiology: S1S2, no murmurs Gastrointestinal: normoactive bowel sounds Integumentary: no rash, warm and dry Neurologic: no focal deficit, no asterixis, confused Musculoskeletal: other (trace dependent edema) Psychiatric: cooperative - Lab 03/07/18 04:34 03/10/18 06:05 Most recent lab results Calcium 7.9 mg/dL (8.4-10.2) L 03/10/18 06:05 Phosphorus 3.90 mg/dL (2.5-4.5) 03/10/18 06:05 Magnesium 3.20 mg/dL (1.7-2.3) H 03/04/18 16:41
[2018-03-10] MEDS: ZOLOFT PO SCH (09:04)
[2018-03-10] MEDS: PLAVIX PO SCH (09:04)
[2018-03-10] MEDS: COREG PO SCH (09:05)
[2018-03-10] MEDS: LOVENOX SUB-Q SCH (09:05)
[2018-03-10] MEDS: ROCEPHIN/NS 1 GM/50 ML 1 GM/50 ML BAG IV SCH (10:00)
--- NOTE | 2018-03-10 12:20 | Discharge Summary ---
Providers - Providers Date of Admission: 03/04/18 22:45 Attending physician: BRET LY MD 03/05/18 00:02 Consult to Physician [CONS] Routine Comment: Consulting Provider: SUPA HUGHES Physician Instructions: Reason For Exam: arf 03/09/18 07:45 Physical Therapy Evaluation and Treat [CONS] Routine Comment: Reason For Exam: Debility Primary care physician: RO[employer]ICE [employer]OD SERVER Hospitalization Reason for admission: Acute on chronic renal failure, Failure to eat and drink Condition: Stable Hospital course: Admission HPI: 82 year old man with history of hypertension, coronary artery disease, hyperlipidemia, CHF was brought to the emergency room is at decreased oral intake over the last 1 week. Son at bedside state that his in November and since then he is admitted difficulty with grieving process. Patient was in the hospital 1 week ago for CHF exacerbation and patient didn't want any cardiac intervention. This time was admitted for the management of acute on chronic KD patient creatinine on admission was 4.9 and nephrology consulted but the patient declined dialysis. Patient has UTI and treated with IV antibiotics. CHF stable. Patient started to eat and drink. Zoloft continued for his depression. The son asked for placement and patient discharged to SNF. Disposition: DC/[place]-03 SNF W [facility] Time spent for discharge: 32 minutes - Discharge Diagnoses (1) Acute kidney injury Status: Acute (2) UTI (urinary tract infection) Status: Acute Qualifiers: Urinary tract infection type: site unspecified Hematuria presence: without hematuria Qualified Code(s): N39.0 - Urinary tract infection, site not specified (3) Uremic encephalopathy Status: Resolved (4) CHF (congestive heart failure) Status: Acute (5) COPD (chronic obstructive pulmonary disease) Status: Chronic Qualifiers: COPD type: unspecified COPD Qualified Code(s): J44.9 - Chronic obstructive pulmonary disease, unspecified (6) Coronary artery disease Status: Chronic Qualifiers: Coronary Disease-Associated Artery/Lesion type: [place] artery [place] vs. transplanted heart: [place] heart (7) Depression Status: Chronic Qualifiers: Depression Type: unspecified Qualified Code(s): F32.9 - Major depressive disorder, single episode, unspecified (8) Hyperlipidemia Status: Chronic Qualifiers: Hyperlipidemia type: mixed hyperlipidemia Qualified Code(s): E78.2 - Mixed hyperlipidemia (9) Hypertension Status: Chronic Qualifiers: Hypertension type: essential hypertension Qualified Code(s): I10 - Essential (primary) hypertension Core Measure Documentation - Palliative Care Palliative Care/ Comfort Measures: Not Applicable - Core Measures Any of the following diagnoses?: history only (CHF) Exam - Physical Exam Narrative exam: Not in cardiopulmonary distress. The patient appeared well nourished and normally developed. Vital signs as documented. Head exam is unremarkable. No scleral icterus . Neck is without jugular venous distension, thyromegaly, or carotid bruits. Lungs are clear to auscultation. Cardiac exam reveals regular rate and Rhythm. First and second heart sounds normal. No murmurs, rubs or gallops. Abdominal exam reveals normal bowel sounds, no masses, no organomegaly and no aortic enlargement. Extremities are nonedematous and both femoral and pedal pulses are normal. CREELER: Alert and oriented. - Constitutional Vitals: Temp Pulse Resp BP Pulse Ox 97.5 F L 76 18 129/86 98 03/10/18 08:01 03/10/18 09:05 03/10/18 08:01 03/10/18 09:05 03/10/18 08:01 Plan Activity: no restrictions Weight Bearing Status: Full Weight Bearing Diet: low salt Additional Instructions: F/U at [facility] in 1-2 weeks Follow up with: POP OSORIO MD [Primary Care Provider] - 3-5 Days
[2018-03-10] MEDS: SODIUM CHLORIDE FLUSH SYRINGE 10 ML IV SCH (14:56)
== END 2018-03-10 15:13 | DRG 871 ==
LOC: ED 16:14 → IMCU 22:45 → 2B-ACE 03-08 21:02
PROVIDERS: ADMIT Internal Medicine; ATTEND Internal Medicine
PROC: 4A033R1 Measurement of Arterial Saturation, Peripheral, Percutaneous Approach (ICD-10-PCS; principal; 2018-03-04)
DX: A41.9 Sepsis, unspecified organism (principal); N17.0 Acute kidney failure with tubular necrosis; G93.49 Other encephalopathy; E87.0 Hyperosmolality and hypernatremia; N39.0 Urinary tract infection, site not specified; I13.0 Hypertensive heart and chronic kidney disease with heart failure and stage 1 through stage 4 chronic kidney disease, or unspecified chronic kidney disease; I50.22 Chronic systolic (congestive) heart failure; I25.10 Atherosclerotic heart disease of native coronary artery without angina pectoris; E87.5 Hyperkalemia; F03.90 Unspecified dementia, unspecified severity, without behavioral disturbance, psychotic disturbance, mood disturbance, and anxiety; K21.9 Gastro-esophageal reflux disease without esophagitis; E87.6 Hypokalemia; F41.9 Anxiety disorder, unspecified; N18.3 Chronic kidney disease, stage 3 (moderate); J44.9 Chronic obstructive pulmonary disease, unspecified; E78.2 Mixed hyperlipidemia; E86.0 Dehydration; B96.1 Klebsiella pneumoniae [K. pneumoniae] as the cause of diseases classified elsewhere; F32.9 Major depressive disorder, single episode, unspecified; Z95.810 Presence of automatic (implantable) cardiac defibrillator; Z85.51 Personal history of malignant neoplasm of bladder; Z87.891 Personal history of nicotine dependence; Z79.51 Long term (current) use of inhaled steroids; Z79.899 Other long term (current) drug therapy; Z79.82 Long term (current) use of aspirin
CPT/HCPCS: 36415; 70450; 71045; 74176; 80048; 80053; 80061; 80307; 80320; 81001; 82140; 82550; 82553; 82803; 82962; 83735; 84100; 84443; 84484; 85007; 85025; 85610; 87076; 87086; 87186; 93005; 93010; 93306; 96374; G0480; G8978-GP; G8979-GP; J0696; J1650; J1940; J7040; J7070